=== PATIENT | male | born 1945 | race Caucasian/White ===

== ENCOUNTER 2016-05-08 15:51 | Inpatient (IN) ==
[2016-05-08 17:06] VITALS: BMI 39.2
[2016-05-08] MEDS ORDERED: PERCOCET 10-325 ONE (19:41)
[2016-05-08] MEDS: PERCOCET 10-325 PO PRN (19:44)
[2016-05-08 20:43] LABS: PROTHROMBIN TIME 27.9 SEC (9.3-11.0)
[2016-05-08] MEDS ORDERED: COUMADIN ONE ×2 (20:56)
[2016-05-08] MEDS ORDERED: XALATAN OP SCH (21:00)
[2016-05-08] MEDS ORDERED: CRESTOR PO SCH (21:00)
[2016-05-08] MEDS ORDERED: PREGABALIN PO SCH (21:00)
[2016-05-08] MEDS ORDERED: SOTALOL HCL 160 MG PO SCH (21:00)
[2016-05-08] MEDS ORDERED: [UNRECOGNIZED DRUG - OTHER] PO SCH (21:00)
[2016-05-08] MEDS: COUMADIN PO SCH ×2 (21:24→21:25)
[2016-05-08] MEDS ORDERED: BETAPACE ONE (21:28)
[2016-05-08] MEDS ORDERED: LYRICA ONE (21:28)
[2016-05-08] MEDS ORDERED: XALATAN OP ONE (21:29)
[2016-05-08] MEDS ORDERED: NON-FORMULARY MEDICATION (Pregabalin [Lyrica] 150 MG) PO SCH ×22 (21:39)
[2016-05-08] MEDS ORDERED: LYRICA PO STA (21:40)
[2016-05-09] MEDS ORDERED: PERCOCET 10-325 ONE (02:12)
[2016-05-09] MEDS: PERCOCET 10-325 PO PRN (02:13)
[2016-05-09] MEDS: PROTONIX PO SCH (06:10)
[2016-05-09] MEDS ORDERED: OXYCODONE PO PRN (07:28)
[2016-05-09 07:59] LABS: BASOPHILS # (AUTO) 0.1 K/uL (0-0.2); BASOPHILS % (AUTO) 0.6 % (0.0-3.0); EOSINOPHILS # (AUTO) 0.2 K/ul (0.0-0.7); EOSINOPHILS % (AUTO) 2.1 % (0.0-7.0); HEMATOCRIT 31.6 % (42.0-52.0); HEMOGLOBIN 10.2 g/dl (14.0-18.0); IMMATURE GRANULOCYTE % (AUTO) 1.9 % (0.0-5.0); LYMPHOCYTES # (AUTO) 2.9 K/uL (0.60-3.4); LYMPHOCYTES % (AUTO) 33.6 (10.0-50.0); MEAN CORPUSCULAR HEMOGLOBIN 30.3 pg (27.0-31.0); MEAN CORPUSCULAR HGB CONC 32.3 (31.8-35.4); MEAN CORPUSCULAR VOLUME 93.8 fl (80.0-94.0); MONOCYTES # (AUTO) 0.6 K/uL (0.4-2.0); MONOCYTES % (AUTO) 6.9 (0-10); NEUTROPHILS # (AUTO) 4.7 K/ul (2.0-6.9); NEUTROPHILS % (AUTO) 54.9; PLATELET COUNT 313 10^3/uL (140-440); RED BLOOD COUNT 3.37 10^6/ul (4.70-6.10); WHITE BLOOD COUNT 8.51 K/ul (4.2-10.2)
[2016-05-09 08:31] LABS: ALBUMIN 2.8 g/dL (3.4-5.0); ALBUMIN/GLOBULIN RATIO 0.93; BILIRUBIN,TOTAL 0.57 mg/dL (0.00-1.20); BUN/CREATININE RATIO 21.34; CALCIUM 9.7 mg/dL (8.2-10.2); CREATININE 0.89 mg/dL (0.60-1.10); TOTAL PROTEIN 5.8 g/dL (5.8-8.1)
[2016-05-09] MEDS: OMEGA-3 FISH OIL PO SCH (08:48)
[2016-05-09] MEDS: BETAPACE PO SCH ×2 (08:48→21:06)
[2016-05-09] MEDS: OXYCODONE PO PRN ×4 (08:54→21:52)
[2016-05-09] MEDS: MULTIVITAMIN PO SCH (08:54)
[2016-05-09] MEDS: CALCIUM 500 + VIT D 200 MG TABLET PO SCH (08:55)
[2016-05-09] MEDS: VITAMIN D PO SCH (08:56)
[2016-05-09] MEDS: TRILEPTAL PO SCH (08:56)
[2016-05-09] MEDS: MIRALAX PO SCH (08:57)
[2016-05-09] MEDS: [UNRECOGNIZED DRUG - OTHER] PO SCH ×2 (08:57→21:20)
[2016-05-09] MEDS ORDERED: TRIAMTERENE PO SCH (09:00)
[2016-05-09] MEDS ORDERED: NON-FORMULARY MEDICATION PO SCH ×22 (09:00)
[2016-05-09] MEDS ORDERED: DYAZIDE PO SCH (09:00)
[2016-05-09] MEDS ORDERED: [UNRECOGNIZED DRUG - OTHER] PO SCH (09:00)
[2016-05-09] MEDS ORDERED: DHA PO SCH ×22 (09:00)
[2016-05-09] MEDS ORDERED: NON-FORMULARY MEDICATION (Cholecalciferol (Vitamin D3) [Vitamin D3] 2,000 UNIT) PO SCH (09:00)
[2016-05-09] MEDS ORDERED: HYDROCHLOROTHIAZIDE PO SCH (09:00)
[2016-05-09] MEDS ORDERED: EPA PO SCH ×22 (09:00)
[2016-05-09] MEDS ORDERED: FISH OIL PO SCH ×22 (09:00)
--- NOTE | 2016-05-09 09:26 | DI ---
Exam: Chest two views History: Atrial fibrillation. Hypertension. Recent cardioversion. Findings: PA and lateral views of the chest were obtained and compared to the prior study from 10/04. There is a new area of minimal infiltrate and atelectasis posterior in location thought to localize to the lower lobe region, side of origin unclear from the frontal projection. Cardiac silhouette is believed to be borderline enlarged. No evidence of vascular congestion or red istribution nor pleural effusion is identified. Impression: As compared to 10/28/2015 there is a new area of minimal infiltrate/atelectasis thought to localize to one of the lower lobes, side of origin somewhat unclear from the frontal projection.
--- NOTE | 2016-05-09 11:49 | RS.PTINEVL ---
Subjective - Patient information Date of Evaluation: 05/09/16 Date of Arrival on Unit: 05/08/16 Admitted From:: Facility Transfer (following Right CONSTANTINE) Usual Living Arrangement: With Spouse Living Arrangement Comments: none Home Environment: House, Stairs (few) (1-2 to get into home), No rail Surgical History Comments:: Back surgery 1976, right shoulder surgery 2003, Cholecystecomy 1973 Subjective Information/ Patient Comments:: Patient states he is behind where he should be because of his heart issues while he was in [place]. States he wanted to come to [place] to get stronger and be able to get around by himself, while also having his heart monitored. States surgery was 10 days ago and he has not got to have much therapy because of his heart and recently having a fever. 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 No dressing is present over the icision. Range of Motion - ROM Right Upper Extremity AROM: WFL's Left Upper Extremity AROM: WFL's Right Lower Extremity AROM: Moderate limitation (due to recent right CONSTANTINE) Left Lower Extremity AROM: WFL's Muscle Strength - Muscle Strength Right Upper Extremity Strength: Normal Left Upper Extremity Strength: Normal Right Lower Extremity Strength: Mild Weakness Left Lower Extremity Strength: Normal Sensation - Sensation Comments: Reports some impaired sensation in right LE since surgery Balance - Sitting Balance and Reactions Static Sitting Balance: Good Dynamic Sitting Balance: Good - Standing Balance and Reactions Static Standing Balance: Fair (+) Dynamic Standing Balance: Fair Functional Mobility - Bed Mobility Supine to Sit: Mod Assist, 1 person assist, Verbal Cues, Tactile Cues Sit to Supine: Mod Assist, 1 person assist, Verbal Cues, Tactile Cues Comments:: Patient wanted me to move both legs off of the bed for supine to sit. Verbal and tactile instructions given for him to first move the left ( unaffected) leg off, then use that leverage to move the right LE. Assist given to move the right LE off the bed. Sit to supine, patient was given the choice of using the left LE under the right or gait belt around the right foot. Patient used the gait belt under the right foot and with mod assist of one, was able to help lift the right UE onto the bed. - Transfers Sit to Stand: CGA, Min Assist, 1 person assist, Verbal Cues, Tactile Cues Stand to Sit: CGA, Min Assist, 1 person assist, Verbal Cues, Tactile Cues Stand Pivot Transfers: Min Assist, 1 person assist, Verbal Cues, Tactile Cues - Safety Awareness Safety Awareness: Fair Ambulation - Ambulation Weight Bearing Status: FWB Assistive Device Used: Rolling Walker Distance: 100 feet Assistance needed with Ambulation: CGA, 1 person assist, Verbal Cues, Tactile Cues Gait Deviations: Forward posture, Short stride, Deviates from path (slightly) Factors Affecting Ambulation: Decreased Balance, Pain, Decreased ROM, Decreased Safety, Limited Endurance Treatment time - Units charged Exercise: 1 (SAQ's, AP's, LAQ's, heel slides) - Time with patient Total treatment time: 38 (mins) Patient Education - Education Patient Education: Education of diagnosis, Body/Joint mechanics, Home Exercise Program, Activity Modification, Education of Plan of Care Teaching Recipient: Patient Teaching Methods: Discussion Assessment - Assessment Problem List:: Decreased level of function, Requires training/education, Decreased safety/Risk of falls, Weakness, Pain limits previous level of function Rehab Potential: Good Further Therapy Indicated?: Yes Short Term Goals GOAL #1: Supine to sit with CGA for right LE. Goal to be met by: 05/13/16 GOAL #2: Sit to supine with CGA of right LE using gait belt. Goal to be met by: 05/13/16 GOAL #3: Sit to stand with Supvn with good safety with RW. Goal to be met by: 05/13/16 Fdc Goals GOAL #1: Independent with all bed mobility. Goal to be met by: 05/16/16 GOAL #2: All transfers independent with good safety. Goal to be met by: 05/16/16 GOAL #3: Amb. with RW household distances, independent, w/ good safety. Goal to be met by: 05/16/16 Plan Plan of Care: Therapeutic EX, Neuromuscular Re-Educ, Therapeutic Activity, Self- Care/Home Management Modalities: Cold Pack/Cryotherapy Frequency of Treatment: 1-2 X day, as tolerated Duration of Treatment: 1 Week Anticipated Discharge Destination: Home
[2016-05-09] MEDS ORDERED: WARFARIN SODIUM PO SCH ×42 (17:00)
[2016-05-09] MEDS: COUMADIN PO SCH ×2 (17:16)
[2016-05-09] MEDS: CRESTOR PO SCH (21:07)
[2016-05-09] MEDS: LYRICA PO SCH (21:08)
[2016-05-09] MEDS: XALATAN OP SCH (21:09)
[2016-05-10] MEDS: OXYCODONE PO PRN ×4 (04:21→20:01)
[2016-05-10 05:33] LABS: BASOPHILS # (AUTO) 0.1 K/uL (0-0.2); BASOPHILS % (AUTO) 0.7 % (0.0-3.0); EOSINOPHILS # (AUTO) 0.1 K/ul (0.0-0.7); EOSINOPHILS % (AUTO) 1.4 % (0.0-7.0); HEMATOCRIT 31.1 % (42.0-52.0); HEMOGLOBIN 9.9 g/dl (14.0-18.0); IMMATURE GRANULOCYTE % (AUTO) 2.2 % (0.0-5.0); LYMPHOCYTES # (AUTO) 3.1 K/uL (0.60-3.4); LYMPHOCYTES % (AUTO) 33.3 (10.0-50.0); MEAN CORPUSCULAR HEMOGLOBIN 29.8 pg (27.0-31.0); MEAN CORPUSCULAR HGB CONC 31.8 (31.8-35.4); MEAN CORPUSCULAR VOLUME 93.7 fl (80.0-94.0); MONOCYTES # (AUTO) 0.6 K/uL (0.4-2.0); NEUTROPHILS # (AUTO) 5.1 K/ul (2.0-6.9); NEUTROPHILS % (AUTO) 55.4; PLATELET COUNT 334 10^3/uL (140-440); RED BLOOD COUNT 3.32 10^6/ul (4.70-6.10); WHITE BLOOD COUNT 9.16 K/ul (4.2-10.2)
[2016-05-10] MEDS: PROTONIX PO SCH (05:34)
[2016-05-10 05:46] LABS: PROTHROMBIN TIME 31.3 SEC (9.3-11.0)
[2016-05-10 06:02] LABS: ALBUMIN 2.8 g/dL (3.4-5.0); ALBUMIN/GLOBULIN RATIO 1.04; ANION GAP 13.1; BILIRUBIN,TOTAL 0.56 mg/dL (0.00-1.20); BUN/CREATININE RATIO 22.09; CALCIUM 9.6 mg/dL (8.2-10.2); CREATININE 0.86 mg/dL (0.60-1.10); POTASSIUM 4.1 mmol/L (3.5-5.1); TOTAL PROTEIN 5.5 g/dL (5.8-8.1)
[2016-05-10] MEDS: OMEGA-3 FISH OIL PO SCH (09:26)
[2016-05-10] MEDS: DULCOLAX RC PRN (09:26)
[2016-05-10] MEDS: VITAMIN D PO SCH (09:26)
[2016-05-10] MEDS: BETAPACE PO SCH ×2 (09:26→20:00)
[2016-05-10] MEDS: MULTIVITAMIN PO SCH (09:26)
[2016-05-10] MEDS: CALCIUM 500 + VIT D 200 MG TABLET PO SCH (09:26)
[2016-05-10] MEDS: TRILEPTAL PO SCH (09:26)
[2016-05-10] MEDS: COLACE PO SCH (09:27)
[2016-05-10] MEDS: MIRALAX PO SCH (09:27)
[2016-05-10] MEDS: [UNRECOGNIZED DRUG - OTHER] PO SCH ×2 (09:36→20:01)
[2016-05-10] MEDS ORDERED: LASIX IVP STA (13:31)
[2016-05-10] MEDS: CRESTOR PO SCH (20:00)
[2016-05-10] MEDS: LYRICA PO SCH (20:00)
[2016-05-10] MEDS: XANAX PO PRN (20:00)
[2016-05-10] MEDS: XALATAN OP SCH (20:03)
[2016-05-11 04:44] LABS: BASOPHILS % (AUTO) 0.5 % (0.0-3.0); EOSINOPHILS # (AUTO) 0.1 K/ul (0.0-0.7); EOSINOPHILS % (AUTO) 1.5 % (0.0-7.0); HEMATOCRIT 29.1 % (42.0-52.0); HEMOGLOBIN 9.4 g/dl (14.0-18.0); IMMATURE GRANULOCYTE % (AUTO) 2.2 % (0.0-5.0); LYMPHOCYTES # (AUTO) 2.9 K/uL (0.60-3.4); LYMPHOCYTES % (AUTO) 35.1 (10.0-50.0); MEAN CORPUSCULAR HEMOGLOBIN 30.1 pg (27.0-31.0); MEAN CORPUSCULAR HGB CONC 32.3 (31.8-35.4); MEAN CORPUSCULAR VOLUME 93.3 fl (80.0-94.0); MONOCYTES # (AUTO) 0.6 K/uL (0.4-2.0); MONOCYTES % (AUTO) 7.7 (0-10); NEUTROPHILS # (AUTO) 4.4 K/ul (2.0-6.9); PLATELET COUNT 299 10^3/uL (140-440); RED BLOOD COUNT 3.12 10^6/ul (4.70-6.10); WHITE BLOOD COUNT 8.21 K/ul (4.2-10.2)
[2016-05-11 04:54] LABS: PROTHROMBIN TIME 27.9 SEC (9.3-11.0)
[2016-05-11 05:06] LABS: ALBUMIN 2.6 g/dL (3.4-5.0); ANION GAP 9.1; BILIRUBIN,TOTAL 0.49 mg/dL (0.00-1.20); BUN/CREATININE RATIO 17.97; CALCIUM 9.3 mg/dL (8.2-10.2); CREATININE 0.89 mg/dL (0.60-1.10); POTASSIUM 4.1 mmol/L (3.5-5.1); TOTAL PROTEIN 5.2 g/dL (5.8-8.1)
[2016-05-11] MEDS: OXYCODONE PO PRN ×4 (05:14→22:09)
[2016-05-11] MEDS: PROTONIX PO SCH (05:40)
[2016-05-11] MEDS: BETAPACE PO SCH ×2 (09:03→20:28)
[2016-05-11] MEDS: COLACE PO SCH (09:04)
[2016-05-11] MEDS: CALCIUM 500 + VIT D 200 MG TABLET PO SCH (09:04)
[2016-05-11] MEDS: MIRALAX PO SCH (09:05)
[2016-05-11] MEDS: MULTIVITAMIN PO SCH (09:05)
[2016-05-11] MEDS: TRILEPTAL PO SCH (09:06)
[2016-05-11] MEDS: VITAMIN D PO SCH (09:06)
[2016-05-11] MEDS: OMEGA-3 FISH OIL PO SCH (09:06)
[2016-05-11] MEDS: [UNRECOGNIZED DRUG - OTHER] PO SCH ×2 (09:08→20:29)
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
--- NOTE | 2016-05-11 13:19 | PN ---
DATE OF SERVICE: 05/09/16 SUBJECTIVE: The patient is a 71 year old white male hospitalized after right total hip replacement. The patient is feeling a lot better and he is looking better. The is in the room. The patient's leg swelling on the right lower extremity is a lot better now the leg swelling is maybe +1 to +2 non pitting. It is less sore. REVIEW OF SYSTEMS: CONSTITUTIONAL: No night sweats. No fatigue, malaise, lethargy. No fever or chills. HEENT: Eyes: No visual changes. No eye pain. No eye discharge. ENT: No runny nose. No epistaxis. No sinus pain. No sore throat. No odynophagia. No congestion. RESPIRATORY: No cough, no congestion. No hemoptysis. CARDIOVASCULAR: No angina symptoms. No CHF symptoms. No atypical chest pain for CAD. No palpitations. No shortness of breath. GASTROINTESTINAL: No abdominal pain. No nausea or vomiting. No diarrhea or constipation. No hematemesis. No hematochezia. GENITOURINARY: No urgency. No frequency. No dysuria. No hematuria. No obstructive symptoms. No discharge. No pain. No significant abnormal bleeding. MUSCULOSKELETAL: No musculoskeletal pain; no joint swelling. NEUROLOGICAL: No headache. No neck pain. No syncope. No seizures. No dizziness. PSYCHIATRIC: Not anxious. No depression. No suicidal thoughts. No homicidal thoughts. SKIN: No rash. No lesions. No wounds. ENDOCRINE: No unexplained weight loss. No weight gain. HEMATOLOGIC/LYMPHATIC: No anemia. No purpura. No petechiae. No prolonged or excessive bleeding. No palpable lymph nodes. PHYSICAL EXAMINATION: GENERAL: The patient is oriented to time, place and person. VITAL SIGNS: Temperature 97.3, pulse 58, respiratory 15, blood pressure 56/55 and pulse ox 96%. HEENT: Head normocephalic, atraumatic. Eyes: Extraocular muscles are intact. Pupils are equal, round and reactive to light and accommodation. Ears: No lesions. Nose appeared normal. Throat: No exudate or erythema. NECK: Supple. No JVD, no carotid bruit. No lymphadenopathy or thyromegaly. LUNGS: Decreased breath sounds but clear to auscultation. Percussion note normal. Chest symmetrical. HEART: S1, S2, no S3. No murmurs. No cyanosis or clubbing. No ascites. Pulses: Dorsalis pedis and posterior tibial pulses +1 to +2 both sides. The patient's EKG shows sinus rhythm, bradycardia, PAC's and telemetry the same way. ABDOMEN: Soft. Nontender. Bowel sounds active. No CVA tenderness. No mass felt. EXTREMITIES: No edema. Full range of motion of all extremities, equal. NEUROLOGIC: No focal deficit. Cranial nerves II through XII are grossly intact. No headache, no double vision or headache. SKIN: Not dry. Intact. Turgor - normal. LYMPHATIC: No palpable lymph nodes/no lymphedema. MUSCULOSKELETAL: Normal joints with no swelling. Muscle tone is normal. ASSESSMENT: 1. Right total hip replacement, stable with no evidence of infection at operating site. 2. Calf muscle on the right side is a lot better maybe some swelling, dorsum of the right foot has also some swelling but no tenderness and no redness. On admission day I had mentioned that the patient is still in atrial fibrillation but patient's wasn't that was an error. The patient is in sinus rhythm. After the third Cardioversion the patient had the patient has PAC's. The patient is on 160mg Sotalol twice a day. Blood pressure is on the low side. Dyazide has been taken off CONDITION: Stable. TIME SPENT: More than 30 minutes. Plan and coordination of the patient's care discussed in the presence of nurse. JUNITO
--- NOTE | 2016-05-11 14:49 | PN ---
DATE OF SERVICE: 05/10/16 SUBJECTIVE: The patient is a 71 year old white male hospitalized with right hip replacement. The patient's condition has improved. He is looking a lot better. His pulse rate is 60 regular with occasional PAC's. His blood pressure has come up to 118/70's. Leg edema is somewhat worse then before but the patient is sitting in the bed with his leg elevated and we are going to give Lasix 20mg IV. REVIEW OF SYSTEMS: CONSTITUTIONAL: No night sweats. No fatigue, malaise, lethargy. No fever or chills. HEENT: Eyes: No visual changes. No eye pain. No eye discharge. ENT: No runny nose. No epistaxis. No sinus pain. No sore throat. No odynophagia. No congestion. RESPIRATORY: No cough, no congestion. No hemoptysis. CARDIOVASCULAR: No angina symptoms. No CHF symptoms. No atypical chest pain for CAD. No palpitations. No shortness of breath. GASTROINTESTINAL: No abdominal pain. No nausea or vomiting. No diarrhea or constipation. No hematemesis. No hematochezia. GENITOURINARY: No urgency. No frequency. No dysuria. No hematuria. No obstructive symptoms. No discharge. No pain. No significant abnormal bleeding. MUSCULOSKELETAL: No musculoskeletal pain; no joint swelling. NEUROLOGICAL: No headache. No neck pain. No syncope. No seizures. No dizziness. PSYCHIATRIC: Not anxious. No depression. No suicidal thoughts. No homicidal thoughts. SKIN: No rash. No lesions. No wounds. ENDOCRINE: No unexplained weight loss. No weight gain. HEMATOLOGIC/LYMPHATIC: No anemia. No purpura. No petechiae. No prolonged or excessive bleeding. No palpable lymph nodes. PHYSICAL EXAMINATION: GENERAL: The patient is oriented to time, place and person. VITAL SIGNS: Temperature 97.4, pulse 55, blood pressure 98/56, respiratory 18 and pulse ox 94%. HEENT: Head normocephalic, atraumatic. Eyes: Extraocular muscles are intact. Pupils are equal, round and reactive to light and accommodation. Ears: No lesions. Nose appeared normal. Throat: No exudate or erythema. NECK: Supple. No JVD, no carotid bruit. No lymphadenopathy or thyromegaly. LUNGS: Clear to auscultation. Percussion note normal. Chest symmetrical. HEART: S1, S2, no S3. No murmurs. No cyanosis or clubbing. No ascites. Pulses: Dorsalis pedis and posterior tibial pulses +1 to +2 both sides. ABDOMEN: Soft. Nontender. Bowel sounds active. No CVA tenderness. No mass felt. EXTREMITIES: No edema. Full range of motion of all extremities, equal. NEUROLOGIC: No focal deficit. Cranial nerves II through XII are grossly intact. No headache, no double vision or headache. SKIN: Not dry. Intact. Turgor - normal. LYMPHATIC: No palpable lymph nodes/no lymphedema. MUSCULOSKELETAL: Normal joints with no swelling. Muscle tone is normal. LABS: Hgb 9.9, hct 31, WBC 9,100 normal differential, creatinine 1.8,BUN 19, potassium 4.1, INR 3.0 we are going to hold Coumadin until further order. No evidence of active bleed. ASSESSMENT: 1. Right hip replacement with right lower extremity edema 2. Atrial fibrillation, has resolved after the third Cardioversion. He is on 160 twice a day 3. Anemia, seems to be stable. The patient's hgb was more than 14 with hct of 42 of more before surgery and now it is 9.9 and 31. PLAN: 1. Will give Lasix 2. Elevate the extremity 3. Betapace will reduce the dose tomorrow 4. Will monitor the hgb and hct. CONDITION: Stable. TIME SPENT: More than 30 minutes. Plan and coordination of the patient's care discussed in the presence of nurse. JUNITO
[2016-05-11] MEDS: CRESTOR PO SCH (20:27)
[2016-05-11] MEDS: LYRICA PO SCH (20:28)
[2016-05-11] MEDS: XALATAN OP SCH (20:28)
[2016-05-12 04:43] LABS: BASOPHILS # (AUTO) 0.1 K/uL (0-0.2); BASOPHILS % (AUTO) 0.6 % (0.0-3.0); EOSINOPHILS # (AUTO) 0.1 K/ul (0.0-0.7); EOSINOPHILS % (AUTO) 1.5 % (0.0-7.0); HEMATOCRIT 30.2 % (42.0-52.0); HEMOGLOBIN 9.8 g/dl (14.0-18.0); IMMATURE GRANULOCYTE % (AUTO) 1.8 % (0.0-5.0); LYMPHOCYTES # (AUTO) 2.9 K/uL (0.60-3.4); LYMPHOCYTES % (AUTO) 33.8 (10.0-50.0); MEAN CORPUSCULAR HEMOGLOBIN 30.1 pg (27.0-31.0); MEAN CORPUSCULAR HGB CONC 32.5 (31.8-35.4); MEAN CORPUSCULAR VOLUME 92.6 fl (80.0-94.0); MONOCYTES # (AUTO) 0.6 K/uL (0.4-2.0); NEUTROPHILS # (AUTO) 4.7 K/ul (2.0-6.9); NEUTROPHILS % (AUTO) 55.3; PLATELET COUNT 338 10^3/uL (140-440); RED BLOOD COUNT 3.26 10^6/ul (4.70-6.10); WHITE BLOOD COUNT 8.56 K/ul (4.2-10.2)
[2016-05-12] MEDS: OXYCODONE PO PRN ×3 (04:45→13:54)
[2016-05-12 04:53] LABS: PROTHROMBIN TIME 17.1 SEC (9.3-11.0)
[2016-05-12 05:14] LABS: ALBUMIN 2.7 g/dL (3.4-5.0); ALBUMIN/GLOBULIN RATIO 0.96; BILIRUBIN,TOTAL 0.54 mg/dL (0.00-1.20); BUN/CREATININE RATIO 14.73; CALCIUM 9.5 mg/dL (8.2-10.2); CREATININE 0.95 mg/dL (0.60-1.10); TOTAL PROTEIN 5.5 g/dL (5.8-8.1)
[2016-05-12] MEDS: PROTONIX PO SCH (05:34)
[2016-05-12] MEDS: MIRALAX PO SCH (08:43)
[2016-05-12] MEDS: MULTIVITAMIN PO SCH (08:44)
[2016-05-12] MEDS: OMEGA-3 FISH OIL PO SCH (08:44)
[2016-05-12] MEDS: TRILEPTAL PO SCH (08:44)
[2016-05-12] MEDS: CALCIUM 500 + VIT D 200 MG TABLET PO SCH (08:45)
[2016-05-12] MEDS: BETAPACE PO SCH ×2 (08:45→21:51)
[2016-05-12] MEDS: VITAMIN D PO SCH (08:45)
[2016-05-12] MEDS: COLACE PO SCH ×3 (08:45→21:51)
[2016-05-12] MEDS: [UNRECOGNIZED DRUG - OTHER] PO SCH ×2 (08:49→21:54)
[2016-05-12] MEDS: DULCOLAX RC PRN (08:55)
--- NOTE | 2016-05-12 11:32 | PCM.PROG ---
Attending Provider: ATTENDING PROVIDER: Dr. RICHARD MENDOZA DATE OF SERVICE: 05/12/16 SUBJECTIVE: This 71 year old WHITE/ M was hospitalized 05/08/16. The patient is hospitalized with right total hip replacement. The patient's condition has improved. Edema is much less. The patient is up and and about, walking and is making progress. Telemetry shows sinus rhythm and PACs. The patient is asking for Miralax. REVIEW OF SYSTEMS: CONSTITUTIONAL: No night sweats. No fatigue, malaise, lethargy. No fever or chills. HEENT: Eyes: No visual changes. No eye pain. No eye discharge. ENT: No runny nose. No epistaxis. No sinus pain. No odynophagia. No congestion. RESPIRATORY: No cough, no congestion. No hemoptysis. CARDIOVASCULAR: No angina symptoms. No CHF symptoms. No atypical chest pain for CAD. No palpitations. No shortness of breath. GASTROINTESTINAL: Appetite is better. No abdominal pain. No nausea or vomiting. Constipation. No hematemesis. No hematochezia. GENITOURINARY: No urgency. No frequency. No dysuria. No hematuria. No obstructive symptoms. No discharge. No pain. No significant abnormal bleeding. MUSCULOSKELETAL: No complaint of pain. NEUROLOGICAL: Awake, alert, oriented to time, place and person. No headache. No neck pain. No syncope. No seizures. No dizziness. PSYCHIATRIC: Not anxious. No depression. No suicidal thoughts. No homicidal thoughts. SKIN: No rash. Incision right hip clean, no sign of infection. ENDOCRINE: No unexplained weight loss. No weight gain. HEMATOLOGIC/LYMPHATIC: No anemia. No purpura. No petechiae. No prolonged or excessive bleeding. No palpable lymph nodes. PHYSICAL EXAMINATION: GENERAL: The patient is awake, alert and oriented, sitting on the side of the bed in no distress. VITAL SIGNS: Temperature 98.3 F, Pulse 72, Respiratory Rate 20, BP 107/62, Pulse Ox 92% HEENT: Head normocephalic, atraumatic. Eyes: Extraocular muscles are intact. Pupils are equal, round and reactive to light and accommodation. Ears: No lesions. Nose appeared normal. Throat: No exudate or erythema. NECK: Supple. No JVD, no carotid bruit. No lymphadenopathy or thyromegaly. LUNGS: Clear to auscultation. Percussion note normal. Chest symmetrical. HEART: S1, S2, no S3. No murmurs. No cyanosis or clubbing. No ascites. Pulses: Dorsalis pedis and posterior tibial pulses +1 to +2 both sides. ABDOMEN: Soft. Non-tender. Bowel sounds active. No CVA tenderness. No mass felt. EXTREMITIES: No edema. Full range of motion of all extremities, equal. Incision of right hip is clean and healthy looking. No evidence of infection. NEUROLOGIC: No focal deficit. Cranial nerves II through XII are grossly intact. No headache, no double vision or headache. SKIN: Not dry. Intact. Turgor-normal. LYMPHATIC: No palpable lymph nodes/no lymphedema. MUSCULOSKELETAL: Normal joints with no swelling. Muscle tone is normal. LAB REVIEW: 05/12/16 04:39 05/12/16 04:39 05/12/16 04:39: WBC 8.56, RBC 3.26 L, Hgb 9.8 L, Hct 30.2 L, MCV 92.6, MCH 30.1 , MCHC 32.5, RDW Coeff of Sergio 15.0 H, Plt Count 338, Immature Gran % (Auto) 1.8 , Neut % (Auto) 55.3, Lymph % (Auto) 33.8, [place] % (Auto) 7.0, Eos % (Auto) 1.5, Baso % (Auto) 0.6, Immature Gran # (Auto) 0.2, Neut # 4.7, Lymph # 2.9, [place] # 0.6, Eos # 0.1, Baso # 0.1, PT 17.1 H D, INR 1.66, Sodium 142, Potassium 4.0, Chloride 104, Carbon Dioxide 31, Anion Gap 11.0, BUN 14, Creatinine 0.95, Estimated GFR (MDRD) 78.00, BUN/Creatinine Ratio 14.73, Glucose 125 H, Calcium 9.5, Total Bilirubin 0.54, AST 25, ALT 52, Alkaline Phosphatase 67, Total Protein 5.5 L, Albumin 2.7 L, Globulin 2.8, Albumin/Globulin Ratio 0.96 ASSESSMENT: 1. Right hip replacement recovering well with no obvious complications. 2. Hypertension 3. Pulmonary embolism status post [place] filter. 4. Dyslipidemia. 5. Osteoarthritis. 6. DJD spine. 7. CHF PLAN: 1. Miralax 2. Restart Coumadin 7 mg today 3. Betapace reduce to 120 mg twice a day 4. The patient was given a dose of Lasix. 5. Will restart Dyazide daily. 6. Hemoglobin and hematocrit are stable at a lower level. No evidence of GI bleeding. Plan and coordination of the patient's care discussed in the presence of Stewarding Supervisor and nurse. CONDITION: Stable SCRIBED BY: HAIDER SHAW Development Manager scribed while in presence of service performed by Dr. RICHARD MENDOZA on 05/12/16 ([id number])
[2016-05-12] MEDS: DYAZIDE PO SCH (13:51)
--- NOTE | 2016-05-12 14:12 | HP ---
DATE OF SERVICE: 05/08/16 - SWING BED ADMISSION (the patient was seen by me in Room 112) REASON FOR HOSPITALIZATION/HISTORY OF PRESENT ILLNESS: This patient is a 71-year-old male who was admitted to swing bed after undergoing right total hip replacement. The patient, during the stay in the hospital, had fever with hypotension. The patient had atrial fibrillation, which was known postop. After 2 to 3 days of staying in the hospital, cardioversion was tried times three, which has been unsuccessful. The patient is on Sotalol, Oxycodone, antihypertensive, Valium. REVIEW OF SYSTEMS: CONSTITUTIONAL: No night sweats. No fatigue, malaise, lethargy. No fever or chills. HEENT: Eyes: No visual changes. No eye pain. No eye discharge. ENT: No runny nose. No epistaxis. No sinus pain. No sore throat. No odynophagia. No ear pain. No congestion. RESPIRATORY: No cough, no congestion. No hemoptysis. CARDIOVASCULAR: No angina symptoms. No CHF symptoms. No atypical chest pain for CAD. No palpitations. No shortness of breath. GASTROINTESTINAL: No abdominal pain. No nausea or vomiting. No diarrhea or constipation. No hematemesis. No hematochezia. GENITOURINARY: No urgency. No frequency. No dysuria. No hematuria. No obstructive symptoms. No discharge. No pain. No significant abnormal bleeding. MUSCULOSKELETAL: Soreness in the right hip area. NEUROLOGICAL: No headache. No neck pain. No syncope. No seizures. No dizziness. PSYCHIATRIC: Not anxious. No depression. No suicidal thoughts. No homicidal thoughts. SKIN: No rash. No lesions. No wounds. ENDOCRINE: No unexplained weight loss. No weight gain. HEMATOLOGIC/LYMPHATIC: No anemia. No purpura. No petechiae. No prolonged or excessive bleeding. No palpable lymph nodes. PAST MEDICAL/SURGICAL HISTORY: 1. Colonic ileus 06/21/13 2. Hypertension 3. Pulmonary embolism by history status post Octavio filter 4. Dyslipidemia 5. Osteoarthritis 6. DJD spine 7. CHF 9. Cholecystectomy 10. Lumbar surgery PERSONAL/FAMILY/SOCIAL HISTORY: The patient is , lives with his . Nonsmoker. No alcohol use. He does all activities of daily living. MEDICATIONS: (HOME) 1. Multivitamin one p.o. daily 2. Glucose/Chondr/Олег Hy/Hy/AC one each p.o. b.i.d. 3. Cholecalciferol (Vitamin D3) (Vitamin D) 2000 unit p.o. daily 4. Fish Oil/Dha/Epa one each p.o. daily 5. Triamterene/Hydrochlorothiazide 75 mg-50 mg one cap p.o. daily 6. Esomeprazole Magnesium (Nexium) 40 mg p.o. daily 7. Latanoprost (Xalatan) one drop route bedtime 8. Calcium Carbonate/Vitamin D3 one each p.o. daily 9. Alprazolam (Xanax) 0.25 mg p.o. p.r.n. 10. Sotalol 160 mg p.o. b.i.d. 11. Rosuvastatin (Crestor) one tab p.o. bedtime 12. Pregabalin (Lyrica) 150 mg p.o. bedtime 13. Warfarin (Coumadin) 4 mg one tab p.o. q.p.m. 14. Warfarin (Coumadin) 3 mg one tab p.o. q.p.m. ALLERGIES: AMPICILLIN, MORPHINE PHYSICAL EXAMINATION: GENERAL: The patient is oriented to time, place and person. VITAL SIGNS: Temperature 98, pulse 90/min irregular, respiratory rate 15, BP 138/82. HEENT: Head normocephalic, atraumatic. Eyes: Extraocular muscles are intact. Pupils are equal, round and reactive to light and accommodation. Ears: No lesions. Nose appeared normal. Throat: No exudate or erythema. NECK: Supple. No JVP, no carotid bruit. No lymphadenopathy or thyromegaly. LUNGS: Clear to auscultation. Percussion note normal. Chest symmetrical. HEART: S1, S2, no S3. irregularly irregular, rate 98/min. No cyanosis or clubbing. No ascites. Pulses: Dorsalis pedis and posterior tibial pulses +1 to +2 both sides. ABDOMEN: Soft. Nontender. Bowel sounds active. No CVA tenderness. No mass felt. EXTREMITIES: Full range of motion of all extremities, equal. Right hip is swollen, incision dry. No drainage noted. No evidence of infection. Right calf swollen, non pitting edema likely from extravasation of blood. Edema is +3 on right leg. NEUROLOGIC: No focal deficit. Cranial nerves II through XII are grossly intact. No headache, no double vision or headache. SKIN: Not dry. Intact. Turgor - normal. LYMPHATIC: No palpable lymph nodes/no lymphedema. MUSCULOSKELETAL: Normal joints with no swelling. Muscle tone is normal. ASSESSMENT: 1. RIGHT TOTAL HIP REPLACEMENT 2. ATRIAL FIBRILLATION, FAILED CARDIOVERSION 3. HYPERTENSION 4. OBESITY 5. GENERALIZED OSTEOARTHRITIS PLAN: 1. Elevate legs. 2. Oxycodone is not available so will put patient on Percocet. 3. Continue all other orders given by discharge physician from [facility] including antiplatelet therapy, telemetry. EKG already done shows atrial fibrillation. 4. CBC, CMP pending. CONDITION: Stable. TIME SPENT: More than 70 minutes. MTDD
[2016-05-12] MEDS: COUMADIN 2 MG, COUMADIN 5 MG PO SCH ×2 (17:42)
[2016-05-12] MEDS ORDERED: TYLENOL PO STA (19:37)
[2016-05-12] MEDS ORDERED: TYLENOL PO PRN (19:38)
[2016-05-12] MEDS: DEXTROSE 5%-1/2NS IV SOLUTION 1,000 ML IV SCH (19:49)
[2016-05-12 21:23] LABS: BILIRUBIN,URINE Negative (NEGATIVE); KETONES,URINE Negative (NEGATIVE); LEUKOCYTE ESTERASE ,URINE Negative (NEGATIVE); NITRITE,URINE Negative (NEGATIVE); PH,URINE 8.5 (5-9); PROTEIN,URINE Negative (NEGATIVE); URINE, BLOOD Negative (NEGATIVE)
[2016-05-12 21:24] LABS: ADD URINE MICROSCOPIC NO
[2016-05-12] MEDS: LYRICA PO SCH (21:51)
[2016-05-12] MEDS: CRESTOR PO SCH (21:51)
[2016-05-12] MEDS: XALATAN OP SCH (21:51)
[2016-05-13] MEDS: DEXTROSE 5%-1/2NS IV SOLUTION 1,000 ML IV SCH (03:55)
[2016-05-13 05:25] LABS: BASOPHILS % (AUTO) 0.3 % (0.0-3.0); EOSINOPHILS % (AUTO) 0.2 % (0.0-7.0); HEMATOCRIT 31.2 % (42.0-52.0); HEMOGLOBIN 10.1 g/dl (14.0-18.0); IMMATURE GRANULOCYTE % (AUTO) 0.9 % (0.0-5.0); LYMPHOCYTES # (AUTO) 2.4 K/uL (0.60-3.4); LYMPHOCYTES % (AUTO) 18.8 (10.0-50.0); MEAN CORPUSCULAR HEMOGLOBIN 29.9 pg (27.0-31.0); MEAN CORPUSCULAR HGB CONC 32.4 (31.8-35.4); MEAN CORPUSCULAR VOLUME 92.3 fl (80.0-94.0); MONOCYTES # (AUTO) 0.8 K/uL (0.4-2.0); MONOCYTES % (AUTO) 6.5 (0-10); NEUTROPHILS # (AUTO) 9.4 K/ul (2.0-6.9); NEUTROPHILS % (AUTO) 73.3; PLATELET COUNT 374 10^3/uL (140-440); RED BLOOD COUNT 3.38 10^6/ul (4.70-6.10); WHITE BLOOD COUNT 12.82 K/ul (4.2-10.2)
[2016-05-13] MEDS: PROTONIX PO SCH (05:56)
[2016-05-13 05:57] LABS: ALBUMIN 2.8 g/dL (3.4-5.0); ALBUMIN/GLOBULIN RATIO 0.97; ANION GAP 10.7; BILIRUBIN,TOTAL 1.02 mg/dL (0.00-1.20); BUN/CREATININE RATIO 13.25; CALCIUM 9.5 mg/dL (8.2-10.2); CREATININE 0.83 mg/dL (0.60-1.10); POTASSIUM 3.7 mmol/L (3.5-5.1); TOTAL PROTEIN 5.7 g/dL (5.8-8.1)
[2016-05-13] MEDS: CALCIUM 500 + VIT D 200 MG TABLET PO SCH (08:02)
[2016-05-13] MEDS: VITAMIN D PO SCH (08:02)
[2016-05-13] MEDS: TRILEPTAL PO SCH (08:02)
[2016-05-13] MEDS: OMEGA-3 FISH OIL PO SCH (08:02)
[2016-05-13] MEDS: BETAPACE PO SCH ×2 (08:02→22:38)
[2016-05-13] MEDS: MULTIVITAMIN PO SCH (08:02)
[2016-05-13] MEDS: MIRALAX PO SCH (08:03)
[2016-05-13] MEDS: DYAZIDE PO SCH (08:03)
[2016-05-13] MEDS: COLACE PO SCH ×3 (08:04→22:38)
[2016-05-13] MEDS: [UNRECOGNIZED DRUG - OTHER] PO SCH ×2 (08:04→22:44)
[2016-05-13] MEDS ORDERED: LOVENOX SUBCUT ONE (09:00)
[2016-05-13] MEDS: COUMADIN 2 MG, COUMADIN 5 MG PO SCH ×2 (16:11)
[2016-05-13] MEDS: LYRICA PO SCH (22:34)
[2016-05-13] MEDS: XANAX PO PRN (22:36)
[2016-05-13] MEDS: OXYCODONE PO PRN (22:40)
[2016-05-13] MEDS: CRESTOR PO SCH (22:41)
[2016-05-13] MEDS: XALATAN OP SCH (22:42)
[2016-05-14] MEDS: PROTONIX PO SCH (05:54)
[2016-05-14 06:15] LABS: BASOPHILS # (AUTO) 0.1 K/uL (0-0.2); BASOPHILS % (AUTO) 0.5 % (0.0-3.0); EOSINOPHILS # (AUTO) 0.1 K/ul (0.0-0.7); EOSINOPHILS % (AUTO) 0.5 % (0.0-7.0); HEMATOCRIT 33.5 % (42.0-52.0); HEMOGLOBIN 10.9 g/dl (14.0-18.0); IMMATURE GRANULOCYTE % (AUTO) 1.1 % (0.0-5.0); LYMPHOCYTES # (AUTO) 2.8 K/uL (0.60-3.4); LYMPHOCYTES % (AUTO) 29.3 (10.0-50.0); MEAN CORPUSCULAR HEMOGLOBIN 30.5 pg (27.0-31.0); MEAN CORPUSCULAR HGB CONC 32.5 (31.8-35.4); MEAN CORPUSCULAR VOLUME 93.8 fl (80.0-94.0); MONOCYTES # (AUTO) 0.6 K/uL (0.4-2.0); MONOCYTES % (AUTO) 6.4 (0-10); NEUTROPHILS # (AUTO) 5.9 K/ul (2.0-6.9); NEUTROPHILS % (AUTO) 62.2; PLATELET COUNT 400 10^3/uL (140-440); RED BLOOD COUNT 3.57 10^6/ul (4.70-6.10); WHITE BLOOD COUNT 9.51 K/ul (4.2-10.2)
[2016-05-14 06:25] LABS: PROTHROMBIN TIME 15.2 SEC (9.3-11.0)
[2016-05-14 06:35] LABS: ALBUMIN/GLOBULIN RATIO 0.91; ANION GAP 11.5; BILIRUBIN,TOTAL 0.85 mg/dL (0.00-1.20); BUN/CREATININE RATIO 12.65; CALCIUM 10.1 mg/dL (8.2-10.2); CREATININE 0.79 mg/dL (0.60-1.10); POTASSIUM 3.5 mmol/L (3.5-5.1); TOTAL PROTEIN 6.3 g/dL (5.8-8.1)
[2016-05-14] MEDS: BETAPACE PO SCH ×2 (08:26→20:01)
[2016-05-14] MEDS: COLACE PO SCH ×3 (08:26→20:02)
[2016-05-14] MEDS: CALCIUM 500 + VIT D 200 MG TABLET PO SCH (08:26)
[2016-05-14] MEDS: OMEGA-3 FISH OIL PO SCH (08:27)
[2016-05-14] MEDS: MULTIVITAMIN PO SCH (08:27)
[2016-05-14] MEDS: DYAZIDE PO SCH (08:27)
[2016-05-14] MEDS: MIRALAX PO SCH (08:27)
[2016-05-14] MEDS: VITAMIN D PO SCH (08:28)
[2016-05-14] MEDS: [UNRECOGNIZED DRUG - OTHER] PO SCH ×2 (08:28→20:57)
[2016-05-14] MEDS: TRILEPTAL PO SCH (08:28)
[2016-05-14] MEDS: OXYCODONE PO PRN ×2 (10:35→20:01)
--- NOTE | 2016-05-14 11:29 | PCM.PROG ---
Attending Provider: ATTENDING PROVIDER: Dr. RICHARD MENDOZA DATE OF SERVICE: 05/14/16 SUBJECTIVE: This 71 year old WHITE/ M was hospitalized 05/08/16. The patient is hospitalized with right hip replacement. The patient is in sinus rhythm. The patient's condition has steadily improved; he is walking good, eating well, hemoglobin and hematocrit are going up. REVIEW OF SYSTEMS: CONSTITUTIONAL: No night sweats. No fatigue, malaise, lethargy. No fever or chills. HEENT: Eyes: No visual changes. No eye pain. No eye discharge. ENT: No runny nose. No epistaxis. No sinus pain. No odynophagia. No congestion. RESPIRATORY: No cough, no congestion. No hemoptysis. CARDIOVASCULAR: No angina symptoms. No CHF symptoms. No atypical chest pain for CAD. No palpitations. No shortness of breath. GASTROINTESTINAL: No abdominal pain. No nausea or vomiting. No diarrhea or constipation. No hematemesis. No hematochezia. GENITOURINARY: No urgency. No frequency. No dysuria. No hematuria. No obstructive symptoms. No discharge. No pain. No significant abnormal bleeding. MUSCULOSKELETAL: Soreness of the hip. NEUROLOGICAL: Awake, alert, oriented to time, place and person. No headache. No neck pain. No syncope. No seizures. No dizziness. PSYCHIATRIC: Not anxious. No depression. No suicidal thoughts. No homicidal thoughts. SKIN: No rash. Right hip incision is healing well. ENDOCRINE: No unexplained weight loss. No weight gain. HEMATOLOGIC/LYMPHATIC: No anemia. No purpura. No petechiae. No prolonged or excessive bleeding. No palpable lymph nodes. PHYSICAL EXAMINATION: GENERAL: The patient is awake, alert and oriented, sitting in chair, in no distress. VITAL SIGNS: Temperature 98.0 F, Pulse 62, Respiratory Rate 20, BP 111/62, Pulse Ox 98% HEENT: Head normocephalic, atraumatic. Eyes: Extraocular muscles are intact. Pupils are equal, round and reactive to light and accommodation. Ears: No lesions. Nose appeared normal. Throat: No exudate or erythema. NECK: Supple. No JVD, no carotid bruit. No lymphadenopathy or thyromegaly. LUNGS: Clear to auscultation. Percussion note normal. Chest symmetrical. HEART: S1, S2, no S3. No murmurs. No cyanosis or clubbing. No ascites. Pulses: Dorsalis pedis and posterior tibial pulses +1 to +2 both sides. ABDOMEN: Soft. Non-tender. Bowel sounds active. No CVA tenderness. No mass felt. EXTREMITIES: Right lower extremity is much less than before. Right hip incision is healing well, no drainage, no evidence of infection. No edema. Full range of motion of all extremities, equal. NEUROLOGIC: No focal deficit. Cranial nerves II through XII are grossly intact. No headache, no double vision or headache. SKIN: Not dry. Intact. Turgor-normal. LYMPHATIC: No palpable lymph nodes/no lymphedema. MUSCULOSKELETAL: Normal joints with no swelling. Muscle tone is normal. LAB REVIEW: 05/14/16 06:00 05/14/16 06:00 05/14/16 06:00: WBC 9.51, RBC 3.57 L, Hgb 10.9 L, Hct 33.5 L, MCV 93.8, MCH 30.5 , MCHC 32.5, RDW Coeff of Sergio 15.4 H, Plt Count 400, Immature Gran % (Auto) 1.1 , Neut % (Auto) 62.2, Lymph % (Auto) 29.3, Cloud % (Auto) 6.4, Eos % (Auto) 0.5, Baso % (Auto) 0.5, Immature Gran # (Auto) 0.1, Neut # 5.9, Lymph # 2.8, Cloud # 0.6, Eos # 0.1, Baso # 0.1, PT 15.2 H, INR 1.48, Sodium 145, Potassium 3.5, Chloride 108 H, Carbon Dioxide 29, Anion Gap 11.5, BUN 10, Creatinine 0.79, Estimated GFR (MDRD) 97.00, BUN/Creatinine Ratio 12.65, Glucose 90, Calcium 10.1 , Total Bilirubin 0.85, AST 22, ALT 35, Alkaline Phosphatase 71, Total Protein 6.3, Albumin 3.0 L, Globulin 3.3, Albumin/Globulin Ratio 0.91 ASSESSMENT: 1. Right hip replacement, improving, on one Oxycodone a day for soreness. 2. Atrial fibrillation resolved, in sinus rhythm since being here at the hospital. Betapace 120 mg twice a day. INR 1.4 low, supplemented by Lovenox 70 mg daily; will give 14 mg of Coumadin today. PLAN: 1. As above in the assessment. 2. Will monitor INR Plan and coordination of the patient's care discussed in the presence of Thermoplastic Technician and nurse. CONDITION: Stable SCRIBED BY: HAIDER SHAW Director Of Planning scribed while in presence of service performed by Dr. RICHARD MENDOZA on 05/14/16 ([id number])
[2016-05-14] MEDS ORDERED: COUMADIN 2 MG, COUMADIN 5 MG PO SCH ×2 (17:00)
[2016-05-14] MEDS: COUMADIN 2 MG, COUMADIN 5 MG PO SCH ×2 (17:28)
[2016-05-14] MEDS: XALATAN OP SCH (20:01)
[2016-05-14] MEDS: XANAX PO PRN (20:01)
[2016-05-14] MEDS: LYRICA PO SCH (20:02)
[2016-05-14] MEDS: CRESTOR PO SCH (20:57)
[2016-05-15] MEDS: PROTONIX PO SCH (05:37)
[2016-05-15 05:46] VITALS: BP 92/52; TEMP 98.2
[2016-05-15 06:05] LABS: BASOPHILS # (AUTO) 0.1 K/uL (0-0.2); BASOPHILS % (AUTO) 0.6 % (0.0-3.0); EOSINOPHILS # (AUTO) 0.1 K/ul (0.0-0.7); EOSINOPHILS % (AUTO) 0.9 % (0.0-7.0); HEMATOCRIT 30.6 % (42.0-52.0); HEMOGLOBIN 9.8 g/dl (14.0-18.0); IMMATURE GRANULOCYTE % (AUTO) 0.6 % (0.0-5.0); LYMPHOCYTES # (AUTO) 3.3 K/uL (0.60-3.4); LYMPHOCYTES % (AUTO) 37.7 (10.0-50.0); MEAN CORPUSCULAR HEMOGLOBIN 30.2 pg (27.0-31.0); MEAN CORPUSCULAR VOLUME 94.4 fl (80.0-94.0); MONOCYTES # (AUTO) 0.7 K/uL (0.4-2.0); MONOCYTES % (AUTO) 7.8 (0-10); NEUTROPHILS # (AUTO) 4.6 K/ul (2.0-6.9); NEUTROPHILS % (AUTO) 52.4; PLATELET COUNT 375 10^3/uL (140-440); RED BLOOD COUNT 3.24 10^6/ul (4.70-6.10); WHITE BLOOD COUNT 8.84 K/ul (4.2-10.2)
[2016-05-15 06:16] LABS: PROTHROMBIN TIME 16.6 SEC (9.3-11.0)
[2016-05-15 06:26] LABS: ALBUMIN 2.7 g/dL (3.4-5.0); ANION GAP 8.8; BILIRUBIN,TOTAL 0.5 mg/dL (0.00-1.20); BUN/CREATININE RATIO 15.47; CALCIUM 9.5 mg/dL (8.2-10.2); CREATININE 0.84 mg/dL (0.60-1.10); POTASSIUM 3.8 mmol/L (3.5-5.1); TOTAL PROTEIN 5.4 g/dL (5.8-8.1)
[2016-05-15] MEDS: MIRALAX PO SCH (08:40)
[2016-05-15] MEDS: VITAMIN D PO SCH (08:41)
[2016-05-15] MEDS: OMEGA-3 FISH OIL PO SCH (08:41)
[2016-05-15] MEDS: BETAPACE PO SCH (08:41)
[2016-05-15] MEDS: CALCIUM 500 + VIT D 200 MG TABLET PO SCH (08:41)
[2016-05-15] MEDS: MULTIVITAMIN PO SCH (08:41)
[2016-05-15] MEDS: TRILEPTAL PO SCH (08:41)
[2016-05-15] MEDS: COLACE PO SCH (08:41)
[2016-05-15] MEDS: DYAZIDE PO SCH (08:41)
[2016-05-15] MEDS: [UNRECOGNIZED DRUG - OTHER] PO SCH (09:00)
--- NOTE | 2016-05-15 10:24 | PCM.PROG ---
Attending Provider: ATTENDING PROVIDER: Dr. RICHARD MENDOZA DATE OF SERVICE: 05/15/16 SUBJECTIVE: This 71 year old WHITE/ M was hospitalized 05/08/16. The patient is hospitalized in swing bed after right hip replacement. The patient's condition has improved. The problems were fever - one time, could be flu syndrome. The other problem was atrial fibrillation; he is in sinus alex since on Betapace b.i.d. Hemoglobin and hematocrit are stable. Incision is healing well. REVIEW OF SYSTEMS: CONSTITUTIONAL: No night sweats. No fatigue, malaise, lethargy. No fever or chills. HEENT: Eyes: No visual changes. No eye pain. No eye discharge. ENT: No runny nose. No epistaxis. No sinus pain. No odynophagia. No congestion. RESPIRATORY: No cough, no congestion. No hemoptysis. CARDIOVASCULAR: No angina symptoms. No CHF symptoms. No atypical chest pain for CAD. No palpitations. No shortness of breath. GASTROINTESTINAL: No abdominal pain. No nausea or vomiting. No diarrhea or constipation. No hematemesis. No hematochezia. GENITOURINARY: No urgency. No frequency. No dysuria. No hematuria. No obstructive symptoms. No discharge. No pain. No significant abnormal bleeding. MUSCULOSKELETAL: No musculoskeletal pain; no joint swelling. NEUROLOGICAL: Awake, alert, oriented to time, place and person. No headache. No neck pain. No syncope. No seizures. No dizziness. PSYCHIATRIC: Not anxious. No depression. No suicidal thoughts. No homicidal thoughts. SKIN: No rash. Hip incision healing well. ENDOCRINE: No unexplained weight loss. No weight gain. HEMATOLOGIC/LYMPHATIC: No anemia. No purpura. No petechiae. No prolonged or excessive bleeding. No palpable lymph nodes. PHYSICAL EXAMINATION: GENERAL: The patient is awake, alert and oriented, sitting on side of bed in no distress. VITAL SIGNS: Temperature 98.2 F, Pulse 97, Respiratory Rate 17, BP 92/52, Pulse Ox 95% HEENT: Head normocephalic, atraumatic. Eyes: Extraocular muscles are intact. Pupils are equal, round and reactive to light and accommodation. Ears: No lesions. Nose appeared normal. Throat: No exudate or erythema. NECK: Supple. No JVD, no carotid bruit. No lymphadenopathy or thyromegaly. LUNGS: Clear to auscultation. Percussion note normal. Chest symmetrical. HEART: S1, S2, no S3. No murmurs. No cyanosis or clubbing. No ascites. Pulses: Dorsalis pedis and posterior tibial pulses +1 to +2 both sides. ABDOMEN: Soft. Non-tender. Bowel sounds active. No CVA tenderness. No mass felt. EXTREMITIES: No edema. Full range of motion of all extremities, equal. NEUROLOGIC: No focal deficit. Cranial nerves II through XII are grossly intact. No headache, no double vision or headache. SKIN: Not dry. Intact. Turgor-normal. LYMPHATIC: No palpable lymph nodes/no lymphedema. MUSCULOSKELETAL: Normal joints with no swelling. Muscle tone is normal. LAB REVIEW: 05/15/16 05:30 05/15/16 05:30 05/15/16 05:30: WBC 8.84, RBC 3.24 L, Hgb 9.8 L, Hct 30.6 L, MCV 94.4 H, MCH 30.2, MCHC 32.0, RDW Coeff of Sergio 15.7 H, Plt Count 375, Immature Gran % (Auto) 0.6, Neut % (Auto) 52.4, Lymph % (Auto) 37.7, [place] % (Auto) 7.8, Eos % (Auto) 0.9, Baso % (Auto) 0.6, Immature Gran # (Auto) 0.1, Neut # 4.6, Lymph # 3.3, [place] # 0.7, Eos # 0.1, Baso # 0.1, PT 16.6 H, INR 1.61, Sodium 142, Potassium 3.8, Chloride 108 H, Carbon Dioxide 29, Anion Gap 8.8, BUN 13, Creatinine 0.84, Estimated GFR (MDRD) 90.00, BUN/Creatinine Ratio 15.47, Glucose 102, Calcium 9.5 , Total Bilirubin 0.50, AST 18, ALT 27, Alkaline Phosphatase 62, Total Protein 5.4 L, Albumin 2.7 L, Globulin 2.7, Albumin/Globulin Ratio 1.00 ASSESSMENT: 1. Right hip replacement, improving. 2. Atrial fibrillation resolved; in sinus alex on Betapace. PLAN: 1. Outpatient PT/OT postop hip replacement. 2. Continue all medications. 3. I will see the patient back in 3 to 4 days. 4. One extra Coumadin today. The patient has been given 14 mg of Coumadin the last two days extra to bump up INR. 5. Discharge home. Plan and coordination of the patient's care discussed in the presence of Principal Ios Developer and nurse. CONDITION: Stable SCRIBED BY: HAIDER SHAW Final Assembly Inspector scribed while in presence of service performed by Dr. RICHARD MENDOZA on 05/15/16 ([id number])
[2016-05-15] MEDS ORDERED: COUMADIN PO STA ×2 (13:47→13:48)
--- NOTE | 2016-05-20 11:48 | DS ---
DATE OF SERVICE: 05/15/16 FINAL DIAGNOSIS: 1. Total right hip arthroplasty 2. Decline in functioning and gait disturbance 3. Atrial Fibrillation (resolved sinus Bradycardia) 4. Status post failed cardioversion x3 at [facility] 5. Colonic Ileus, 06/21/13 6. Hypertension 7. Pulmonary embolism, status post jean-claude filter 8. DVT of the lower extremities, 1995 and 2012 9. Dyslipidemia 10.GERD 11.Osteoarthritis 12.DJD Spine 13.Congestive heart failure 14.Cholecystectomy 15.Lumbar surgery 16.Tonsillectomy 17.Shoulder arthroscopy 18.Colon surgery LAST VITALS: Temperature 98.2, pulse 97, respiratory 17, blood pressure 92/52 and pulse ox 95 % DISCHARGE INSTRUCTIONS: Discharge home today. Return to see Dr. Jarquin in one week. Keep appointment with Dr. Burden on 05/27/16 at 2:20pm. Keep appointment with [facility] Outpatient PT/OT on 05/19/16 at 2pm. Resume home medication as per list provided by the nursing staff. MEDICATIONS AT DISCHARGE: Xanax 0.25mg Po bedtime PRN Calcium 500+Vit D 200mg tablet one each PO daily Vitamin D 2,000 unit PO daily Nexium 40mg PO daily [place] 3 1,000mg Po daily Glucosamine and Chondroitin Cap one cap PO twice a day Xalatan 1 drop OP bedtime Multivitamin 1 cap PO daily Trileptal 150mg Po daily Oxycodone 10-20mg PO Q 4-6 hours PRN Lyrica 150mg PO bedtime Crestor 10mg PO bedtime Betapace 120mg PO twice a day Dyazide 1 capsule PO daily Warfarin Sodium 7mg PO daily @ 1700. ALLERGIES: Ampicillin Morphine NEW PRESCRIPTIONS: Dr. Burden 1. Diazepam 5mg, take one tablet by mouth every 6 hours as needed for anxiety of sleep. 2. Oxycodone HCL 10mg immediate release tablet, take one or two tablets by mouth every 4-6 house as needed for pain Dr. Jarquin 1. Betapace 120mg take one tablet by mouth twice daily. DIET INSTRUCTIONS: Healthy heart Stay well hydrated. ACTIVITY: Follow PT/OT advice according to Dr. Burden's instructions. Keep feet/legs elevated as much as possible. SMOKING: Non-smoker DISEASE SPECIFIC EDUCATION: Total right hip arthroplasty PT/OT followup Orthopedic follow up General medicine followup Home medications New prescriptions Activity HOSPITAL COURSE: The patient is a 71 year old male hospitalized in the swing bed after right hip replacement. The patient's course in the hospital is practically uneventful. He is Sotalol dose was decreased to 120mg twice a day. He has stayed into sinus rhythm with sinus bradycardia. The patient is highly motivated. One day during the stay he developed fever which subsided likely could be from flu syndrome. The patient's leg edema is much less on the right lower extremity that he had surgery done. His incision is clean no evidence of infection. His blood pressure is on the little lower side. The Betapace dose would be further reduced depending upon his rhythm and rate. He will be followed as an outpatient. The patient's INR was 1.6 two day in a roll. Extra 7mg were given both days. Labs on discharge: hgb 9.8, hct 30, WBC 8,800 normal differential, creatinine 0.7, BUN 10, potassium 3.5 and glucose 90. CONDITION: Stable. TIME SPENT: More than 60 minutes. MTDD
== END 2016-05-15 14:00 | disposition home or self-care (01) | DRG 560 ==
LOC: MEDSURG B 15:51
PROVIDERS: ADMIT Internal Medicine; ATTEND Internal Medicine
DX: Z47.1 Aftercare following joint replacement surgery (principal); D62 Acute posthemorrhagic anemia; Z96.641 Presence of right artificial hip joint; R00.1 Bradycardia, unspecified; I48.91 Unspecified atrial fibrillation; I10 Essential (primary) hypertension; I50.9 Heart failure, unspecified; E78.5 Hyperlipidemia, unspecified; M19.90 Unspecified osteoarthritis, unspecified site; M47.9 Spondylosis, unspecified; Z79.899 Other long term (current) drug therapy; Z79.01 Long term (current) use of anticoagulants; Z98.890 Other specified postprocedural states; Z86.718 Personal history of other venous thrombosis and embolism; Z86.711 Personal history of pulmonary embolism; Z95.828 Presence of other vascular implants and grafts
CPT/HCPCS: 36415; 80053; 81001; 85025; 85610; 87040; 87081; 93005; 93010; 97802

== ENCOUNTER 2016-06-01 08:00 | Outpatient (RCR) ==
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
--- NOTE | 2016-05-22 14:11 | RS.OPPTDN ---
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 Pain Assessment - Pain Description Pain Location: Right distal lateral thigh and right lateral calf. Pain Description: Sharp, Aching Pain Description: Constant manzo with varied intensity. Current Pain Intensity: 5-6/10 in lower leg and 4/10 lateral thigh Interventions - Exercise/Activities/Manual Therapy Exercises/Activities: 40 mins. of R hip LE strengthening with 3 # resistance , except for SLR's being AAROM.3/15 ankle pumps.QS,SAQ's,heelslides,hip abd/add, LAQ's.Standing hip flexion x 15 at end of session. Total minutes of Exercise: 40 Manual Therapy: na Total minutes of Manual Therapy: 0 HOME EXERCISE PROGRAM: Pain free AROM in all directions in supine. - Charges Total Direct Minutes: 40 Total Treatment Time: 40 Procedures billed for this date of service:: ex 3 Assessment: Patient has moderate weakness in the R hip flexors today,also reports sharp pain with end ROM of hip abduction ,but only aching at rest.Reminded to avoid exercises that elicit sharp pain. Patient Education: Education of diagnosis, Body/Joint mechanics, Home Exercise Program, Home Safety, Activity Modification, Education of Plan of Care Patient demonstrates compliance with HEP?: Yes Short Term Goals Goal #1: Right hip strength 4/5 througout Goal to be met by: 06/05/16 Goal #2: Pain is intermittent in RLE Goal to be met by: 06/05/16 Goal #3: Tinetti to decrease fall risk. Goal to be met by: 06/05/16 Goal #4: Independent with basic HEP Goal to be met by: 06/05/16 Alf Goals Goal #1: Normal gait pattern present. Goal to be met by: 06/26/16 Goal #2: Ambulates with min AD with even WS/WB Goal to be met by: 06/26/16 Goal #3: 5/5 right hip strength Goal to be met by: 06/26/16 Goal #4: Independent with DC HEP Goal to be met by: 06/26/16 Plan PLAN OF CARE EXPIRES ON:: 06/26/16 ORDER # VISITS AND/OR THROUGH DATE: 06/26/2016 PLAN: Continue Plan of Care
--- NOTE | 2016-05-25 15:28 | RS.OPPTDN ---
Subjective Date of Note: 05/25/16 Visit #: 3 Date of Evaluation: 05/19/16 Payer Source: Insurance Treatment Diagnosis: Right hip arthroplasty Current Subjective/complaints:: Patient reports doing his exercises at home and the last couple of days has been better ,regarding his hip pain. Pain Assessment - Pain Description Pain Location: Right distal lateral thigh and right lateral calf. Pain Description: Sharp, Aching Current Pain Intensity: not rated today Interventions - Exercise/Activities/Manual Therapy Exercises/Activities: 45 mins. of R hip LE strengthening with 3 # resistance , except for SLR's being AAROM.3/15 ankle pumps.QS,SAQ's,heelslides,hip abd/add, LAQ's.Standing hip flexion and abduction 3/15 each.15 leg press @ 45# , holding small therapy between his knees. Total minutes of Exercise: 45 Manual Therapy: na Total minutes of Manual Therapy: 0 HOME EXERCISE PROGRAM: Pain free AROM in all directions in supine. - Charges Total Direct Minutes: 45 Total Treatment Time: 45 Procedures billed for this date of service:: ex 3 Assessment: Patient has increased strength in the hip flexors ,still reports fatigue and elevated pain with active abduction today.He has good understanding of HEP. Patient Education: Education of diagnosis, Body/Joint mechanics, Home Exercise Program, Home Safety, Activity Modification, Education of Plan of Care Patient demonstrates compliance with HEP?: Yes Short Term Goals Goal #1: Right hip strength 4/5 througout Goal to be met by: 06/05/16 Progress towards Goal:: Progressing Goal #2: Pain is intermittent in RLE Goal to be met by: 06/05/16 Progress towards Goal:: Progressing Goal #3: Tinetti to decrease fall risk. Goal to be met by: 06/05/16 Goal #4: Independent with basic HEP Goal to be met by: 06/05/16 Snf Goals Goal #1: Normal gait pattern present. Goal to be met by: 06/26/16 Goal #2: Ambulates with min AD with even WS/WB Goal to be met by: 06/26/16 Goal #3: 5/5 right hip strength Goal to be met by: 06/26/16 Goal #4: Independent with DC HEP Goal to be met by: 06/26/16 Progress towards goal: Progressing Plan PLAN OF CARE EXPIRES ON:: 06/26/16 ORDER # VISITS AND/OR THROUGH DATE: 06/26/2016 PLAN: Continue Plan of Care
--- NOTE | 2016-05-29 09:26 | RS.OPPTDN ---
Subjective Date of Note: 05/27/16 Visit #: 4 Date of Evaluation: 05/19/16 Payer Source: Insurance Treatment Diagnosis: Right hip arthroplasty Current Subjective/complaints:: Reports doing his exercises at home ,but is cautious. Pain Assessment - Pain Description Pain Location: Right distal lateral thigh and right lateral calf. Pain Description: Sharp, Aching Pain Description: Constant manzo with varied intensity. Current Pain Intensity: not rated today Interventions - Exercise/Activities/Manual Therapy Exercises/Activities: 45 mins. of R hip LE strengthening ,beginnning with 3/15 on leg press @ 60 #,calf raises @45#.Standing mini-squats,marcning in place,hip abd/adduction. Total minutes of Exercise: 45 Manual Therapy: na Total minutes of Manual Therapy: 0 HOME EXERCISE PROGRAM: Pain free AROM in all directions in supine. - Charges Total Direct Minutes: 45 Total Treatment Time: 45 Procedures billed for this date of service:: ex 3 Assessment: Progressing ,reports the past two days he has noticed the R hip is feeling stronger for certain ADL,s.He fatigues easily in hip flexors,but no sharp pain.His gait pattern has slight decrease in R step length,compared to L. Patient Education: Education of diagnosis, Body/Joint mechanics, Home Exercise Program, Home Safety, Activity Modification, Education of Plan of Care Patient demonstrates compliance with HEP?: Yes Short Term Goals Goal #1: Right hip strength 4/5 througout Goal to be met by: 06/05/16 Progress towards Goal:: Progressing Goal #2: Pain is intermittent in RLE Goal to be met by: 06/05/16 Progress towards Goal:: Progressing Goal #3: Tinetti 20/28 to decrease fall risk. Goal to be met by: 06/05/16 Goal #4: Independent with basic HEP Goal to be met by: 06/05/16 Progress towards Goal:: Progressing [facility] Goals Goal #1: Normal gait pattern present. Goal to be met by: 06/26/16 Progress towards goal: Progressing Goal #2: Ambulates with min AD with even WS/WB Goal to be met by: 06/26/16 Goal #3: 5/5 right hip strength Goal to be met by: 06/26/16 Goal #4: Independent with DC HEP Goal to be met by: 06/26/16 Progress towards goal: Progressing Plan PLAN OF CARE EXPIRES ON:: 06/26/16 ORDER # VISITS AND/OR THROUGH DATE: 06/26/2016
--- NOTE | 2016-05-29 10:08 | RS.OPPTDN ---
Subjective Date of Note: 05/29/16 Visit #: 5 Date of Evaluation: 05/19/16 Payer Source: Insurance Treatment Diagnosis: Right hip arthroplasty Current Subjective/complaints:: Patient reports he feels he is improvingespecially this past week. Pain Assessment - Pain Description Pain Location: Right distal lateral thigh and right lateral calf. Pain Description: Sharp, Aching Current Pain Intensity: not rated today Interventions - Exercise/Activities/Manual Therapy Exercises/Activities: 45 mins. beginning with 10 mins. on bike,then R hip LE strengthening ,beginnning with 3/15 on leg press @ 60 #,calf raises @45# .Standing mini-squats,marcning in place,hip abd/adduction. Total minutes of Exercise: 45 Manual Therapy: na HOME EXERCISE PROGRAM: Pain free AROM in all directions in supine. - Charges Total Direct Minutes: 35 Total Treatment Time: 45 Procedures billed for this date of service:: ex 2 Assessment: Patient has increased strength in the hip flexors and abductors, improved eccentric control with returning from hip abduction.He has steady gait with R/W. Patient Education: Education of diagnosis, Body/Joint mechanics, Home Exercise Program, Home Safety, Activity Modification, Education of Plan of Care Patient demonstrates compliance with HEP?: Yes Short Term Goals Goal #1: Right hip strength 4/5 througout Goal to be met by: 06/05/16 Progress towards Goal:: Progressing Goal #2: Pain is intermittent in RLE Goal to be met by: 06/05/16 Progress towards Goal:: Progressing Goal #3: Tinetti 20/28 to decrease fall risk. Goal to be met by: 06/05/16 Goal #4: Independent with basic HEP Goal to be met by: 06/05/16 Progress towards Goal:: Progressing Board Mixer Tender Goals Goal #1: Normal gait pattern present. Goal to be met by: 06/26/16 Progress towards goal: Progressing Goal #2: Ambulates with min AD with even WS/WB Goal to be met by: 06/26/16 Progress towards goal: Progressing Goal #3: 5/5 right hip strength Goal to be met by: 06/26/16 Progress towards goal: Progressing Goal #4: Independent with DC HEP Goal to be met by: 06/26/16 Progress towards goal: Progressing Plan PLAN OF CARE EXPIRES ON:: 06/26/16 ORDER # VISITS AND/OR THROUGH DATE: 06/26/2016 PLAN: Progress Exercises
--- NOTE | 2016-06-01 09:05 | RS.OPPTDN ---
Subjective Date of Note: 06/01/16 Visit #: 6 Date of Evaluation: 05/19/16 Payer Source: Insurance Treatment Diagnosis: Right hip arthroplasty Current Subjective/complaints:: Patient reports he is doing his HEP a couple of times per day. Pain Assessment - Pain Description Pain Location: Right distal lateral thigh and right lateral calf. Pain Description: Sharp, Aching Current Pain Intensity: moderate Interventions - Exercise/Activities/Manual Therapy Exercises/Activities: 45 mins. R hip LE strengthening ,beginnning with 4/15 on leg press @ 75#,calf raises @45#.Standing mini-squats,marcning in place,hip abd/ adduction with 3# resistance .Seated hamstring curls ,3/15 with blue theraband.Ended session with gait training using cane and without for short distances,including side-stepping. Total minutes of Exercise: 45 Manual Therapy: na Total minutes of Manual Therapy: 0 HOME EXERCISE PROGRAM: Pain free AROM in all directions in supine,sit ,or standing.Recommended 2-3 x/day. - Charges Total Direct Minutes: 45 Total Treatment Time: 45 Procedures billed for this date of service:: ex 2,gt Assessment: Patient has increased strenght in quads and hamstrings,steadier gait .He has minimal antalgia present when ambualting without asistive device.He understands to use cane or walker for longer walking distances, especially [place]. Patient Education: Education of diagnosis, Body/Joint mechanics, Home Exercise Program, Home Safety, Activity Modification, Education of Plan of Care Patient demonstrates compliance with HEP?: Yes Short Term Goals Goal #1: Right hip strength 4/5 througout Goal to be met by: 06/05/16 Progress towards Goal:: Progressing Goal #2: Pain is intermittent in RLE Goal to be met by: 06/05/16 Progress towards Goal:: Progressing Goal #3: Tinetti / to decrease fall risk. Goal to be met by: 06/05/16 Goal #4: Independent with basic HEP Goal to be met by: 06/05/16 Progress towards Goal:: Progressing Qa Internship Goals Goal #1: Normal gait pattern present. Goal to be met by: 06/26/16 Progress towards goal: Progressing Goal #2: Ambulates with min AD with even WS/WB Goal to be met by: 06/26/16 Progress towards goal: Progressing Goal #3: 5/5 right hip strength Goal to be met by: 06/26/16 Progress towards goal: Progressing Goal #4: Independent with DC HEP Goal to be met by: 06/26/16 Progress towards goal: Progressing Plan PLAN OF CARE EXPIRES ON:: 06/26/16 ORDER # VISITS AND/OR THROUGH DATE: 06/26/2016 PLAN: Continue Plan of Care
== END 2016-06-02 ==
PROVIDERS: ATTEND Orthopaedic Surgery
DX: R26.9 Unspecified abnormalities of gait and mobility (principal); M79.604 Pain in right leg; M62.81 Muscle weakness (generalized); Z96.641 Presence of right artificial hip joint

== ENCOUNTER 2016-06-12 08:00 | Outpatient (RCR) ==
--- NOTE | 2016-06-05 08:54 | RS.OPPTDN ---
Subjective Date of Note: 06/05/16 Date of Evaluation: 05/19/16 Payer Source: Insurance Treatment Diagnosis: Right hip arthroplasty Current Subjective/complaints:: Pleased with his progress,has noticed the past couple of days the R hip feels stronger. Pain Assessment - Pain Description Pain Location: Right thigh. Pain Description: Dull Pain Description: Constant manzo with varied intensity. Current Pain Intensity: minimal Interventions - Exercise/Activities/Manual Therapy Exercises/Activities: 35 mins. R hip LE strengthening ,beginnning with 2/15 on leg press @ 75#,2/15 @ 90 #.3/[address],hip abduction and 3/10 sit to stand from chair.Ended session with side-stepping ,and supervision of 1. Total minutes of Exercise: 35 Manual Therapy: na Total minutes of Manual Therapy: 0 HOME EXERCISE PROGRAM: Pain free AROM in all directions in supine,sit ,or standing.Recommended 2-3 x/day. - Charges Total Direct Minutes: 35 Total Treatment Time: 35 Procedures billed for this date of service:: ex 2 Assessment: Patient has increased strenght in the R hip and LE,steadier gait present today ,with use of cane today,as opposed to the walker.He continues to be highly motivated to improve. Patient Education: Education of diagnosis, Body/Joint mechanics, Home Exercise Program, Home Safety, Activity Modification, Education of Plan of Care Patient demonstrates compliance with HEP?: Yes Short Term Goals Goal #1: Right hip strength 4/5 througout Goal to be met by: 06/05/16 Progress towards Goal:: Progressing Goal #2: Pain is intermittent in RLE Goal to be met by: 06/05/16 Progress towards Goal:: Progressing Goal #3: Tinetti / to decrease fall risk. Goal to be met by: 06/05/16 Goal #4: Independent with basic HEP Goal to be met by: 06/05/16 Progress towards Goal:: Progressing Environmental Services Technician Goals Goal #1: Normal gait pattern present. Goal to be met by: 06/26/16 Progress towards goal: Progressing Goal #2: Ambulates with min AD with even WS/WB Goal to be met by: 06/26/16 Progress towards goal: Progressing Goal #3: 5/5 right hip strength Goal to be met by: 06/26/16 Progress towards goal: Progressing Goal #4: Independent with DC HEP Goal to be met by: 06/26/16 Progress towards goal: Progressing Plan PLAN OF CARE EXPIRES ON:: 06/26/16 ORDER # VISITS AND/OR THROUGH DATE: 06/26/2016 PLAN: Progress Exercises
--- NOTE | 2016-06-08 09:10 | RS.OPPTDN ---
Subjective Date of Note: 06/08/16 Visit #: 8 Date of Evaluation: 05/19/16 Payer Source: Insurance Treatment Diagnosis: Right hip arthroplasty Current Subjective/complaints:: Patient reports doing his HEP regularly, concerned about his progress.I re-assured patient he is doing well,is only 5 weeks post-op. and not behind schedule. Pain Assessment - Pain Description Pain Location: Right thigh. Pain Description: Dull Pain Description: soreness Current Pain Intensity: minimal Interventions - Exercise/Activities/Manual Therapy Exercises/Activities: 35 mins. R hip LE strengthening ,beginnning with /315 on leg press @ 90#.06/[address]#.,hip abduction with 3# and 06/12 sit to stand from chair.Ended session with side-stepping ,and supervision of 1. Total minutes of Exercise: 35 Manual Therapy: na Total minutes of Manual Therapy: 0 HOME EXERCISE PROGRAM: Pain free AROM in all directions in supine,sit ,or standing.Recommended 2-3 x/day. - Charges Total Direct Minutes: 35 Total Treatment Time: 35 Procedures billed for this date of service:: ex 2 Assessment: Patient has increased strength in the R LE,steadier gait today, walking short distances without cane in the gym,also did side-stepping without the cane.He is compliant to HEP. Patient Education: Education of diagnosis, Body/Joint mechanics, Home Exercise Program, Home Safety, Activity Modification, Education of Plan of Care Patient demonstrates compliance with HEP?: Yes Short Term Goals Goal #1: Right hip strength 4/5 througout Goal to be met by: 06/05/16 Progress towards Goal:: Progressing Goal #2: Pain is intermittent in RLE Goal to be met by: 06/05/16 Progress towards Goal:: Progressing Goal #3: Tinetti / to decrease fall risk. Goal to be met by: 06/05/16 Progress towards Goal:: Progressing Goal #4: Independent with basic HEP Goal to be met by: 06/05/16 Progress towards Goal:: Partially Met Alf Goals Goal #1: Normal gait pattern present. Goal to be met by: 06/26/16 Progress towards goal: Progressing Goal #2: Ambulates with min AD with even WS/WB Goal to be met by: 06/26/16 Progress towards goal: Partially Met Goal #3: 5/5 right hip strength Goal to be met by: 06/26/16 Progress towards goal: Progressing Goal #4: Independent with DC HEP Goal to be met by: 06/26/16 Progress towards goal: Progressing Plan PLAN OF CARE EXPIRES ON:: 06/26/16 ORDER # VISITS AND/OR THROUGH DATE: 06/26/2016 PLAN: Continue Plan of Care
--- NOTE | 2016-06-09 10:27 | RS.CXNS ---
Date of scheduled appointment: 06/10/16 Type: Cancel (Has Dr. deshpande,plans to be here for PT on Wednesday06-12-16.)
--- NOTE | 2016-06-12 09:23 | RS.OPPTDN ---
Subjective Date of Note: 06/12/16 Visit #: 9 Date of Evaluation: 05/19/16 Payer Source: Insurance Treatment Diagnosis: Right hip arthroplasty Current Subjective/complaints:: Patient pleased with his progress,is aware of D/ C plan today.He is compliant to HEP. Pain Assessment - Pain Description Pain Location: Right thigh. Pain Description: Dull Pain Description: soreness Current Pain Intensity: minimal Interventions - Exercise/Activities/Manual Therapy Exercises/Activities: 35 mins. HEP review(copies given),Tinetti Assessment, Lower extremity scale done. Tinetti. Total minutes of Exercise: 35 Manual Therapy: na Total minutes of Manual Therapy: 0 HOME EXERCISE PROGRAM: Pain free AROM in all directions in supine,sit ,or standing.Recommended 2-3 x/day. - Charges Total Direct Minutes: 35 Total Treatment Time: 35 Procedures billed for this date of service:: ex 2 Assessment: Patient no longer requires skilled therapy,has good awareness of safety ,pain control and joint protection.He agrees with D/c plan today. Patient Education: Education of diagnosis, Body/Joint mechanics, Home Exercise Program, Home Safety, Activity Modification, Education of Plan of Care Patient demonstrates compliance with HEP?: Yes Short Term Goals Goal #1: Right hip strength 4/5 througout Goal to be met by: 06/05/16 Progress towards Goal:: Met Goal #2: Pain is intermittent in RLE Goal to be met by: 06/05/16 Progress towards Goal:: Met Goal #3: Tinetti to decrease fall risk. Goal to be met by: 06/05/16 () Progress towards Goal:: Met Goal #4: Independent with basic HEP Goal to be met by: 06/05/16 Progress towards Goal:: Partially Met Net Development Manager Goals Goal #1: Normal gait pattern present. Goal to be met by: 06/26/16 Progress towards goal: Partially Met Goal #2: Ambulates with min AD with even WS/WB Goal to be met by: 06/26/16 Progress towards goal: Met Goal #3: 5/5 right hip strength Goal to be met by: 06/26/16 Progress towards goal: Partially Met Goal #4: Independent with DC HEP Goal to be met by: 06/26/16 Progress towards goal: Progressing Plan PLAN OF CARE EXPIRES ON:: 06/26/16 ORDER # VISITS AND/OR THROUGH DATE: 06/26/2016 PLAN: Plan for Discharge
--- NOTE | 2016-06-16 11:19 | RS.OPPTDC ---
Date of Discharge: 06/12/16 Date of Evaluation: 05/19/16 Treatment Diagnosis: Right hip arthroplasty Current Complaints/Gains: Patient is very pleased with his progress and ready for DC. Pain Assessment - Pain Description Pain Location: Right thigh. Pain Description: Dull Pain Description: soreness Current Pain Intensity: minimal Functional Outcome Measure Tinetti: 27 - G Codes & Severity Modifier G Codes & Modifier: Mobility: Goal: CK. DC Status: CI Source of G Code score: Tinetti Interventions - Exercise/Activities/Manual Therapy Exercises/Activities: NA Manual Therapy: na HOME EXERCISE PROGRAM: Pain free AROM in all directions in supine,sit ,or standing.Recommended 2-3 x/day. - Charges Total Direct Minutes: na Total Treatment Time: na Procedures billed for this date of service:: na Assessment Assessment: Excellent progress with pt having met 5/8 goals. He is able to continue with HEP independently to continue with his current progress. Short Term Goals Goal #1: Right hip strength 4/5 througout Goal to be met by: 06/05/16 Progress towards Goal:: Met Goal #2: Pain is intermittent in RLE Goal to be met by: 06/05/16 Progress towards Goal:: Met Goal #3: Tinetti / to decrease fall risk. Goal to be met by: 06/05/16 () Progress towards Goal:: Met Goal #4: Independent with basic HEP Goal to be met by: 06/05/16 Progress towards Goal:: Partially Met Repairer General Goals Goal #1: Normal gait pattern present. Goal to be met by: 06/26/16 Progress towards goal: Partially Met Goal #2: Ambulates with min AD with even WS/WB Goal to be met by: 06/26/16 Progress towards goal: Met Goal #3: 5/5 right hip strength Goal to be met by: 06/26/16 Progress towards goal: Partially Met Goal #4: Independent with DC HEP Goal to be met by: 06/26/16 Progress towards goal: Progressing Plan Reason for Discharge:: No Further Skilled Therapy Indicated (patient is independent with HEP and agrees he is ready for DC)
== END 2016-07-03 ==
PROVIDERS: ATTEND Orthopaedic Surgery
DX: Z96.641 Presence of right artificial hip joint (principal)

== ENCOUNTER 2016-09-25 07:02 | Outpatient (CLI) ==
--- NOTE | 2016-09-25 09:42 | MRI ---
EXAM: MRI left knee without contrast. HISTORY: Left knee pain.. No left knee surgery reported. Popping.. TECHNIQUE: Using a local extremity coil on a high field strength magnet multiplanar multisequence m agnet resonance imaging was performed of the left knee without intravenous or intra-articular gadoli nium contrast. FINDINGS: I do not have prior radiographs of the left knee available for comparison at the time of this dictation. Overall examination is of limited diagnostic quality secondary to artifact/decreased [id number] -resolution. Within the medial compartment there is undersurface meniscal flap tear body displaced along the infe rior coronary recess . Undersurface tear/fraying posterior horn medial meniscus as well . medial co mpartment cartilage otherwise relatively congruent without focal underlying subchondral edema. Laron y productive osteophyte formation. Within the lateral compartment there is discoid like lateral meniscus. Tiny area of tear along the superior articulating surface middle 1/3 posterior horn. Approximate 8 mm area of chondrosis/cartil age ulceration over the weightbearing lateral tibial plateau. Productive osteophyte formation. Within the patellofemoral compartment the patella seated with intact patellar attachment of the medi al and lateral patellar retinaculum. Marked patellar chondrosis/chondromalacia patella with full-th ickness cartilage denudation over the lateral facet. Cartilage attenuation over the corresponding l ateral trochlear groove. No underlying subchondral edema. Productive osteophyte formation. Small left knee effusion. Prominent plica. No osteochondral loose bodies identified. Intact anter ior and posterior cruciate ligament fibers of normal orientation. The extensor mechanism is intact. Some distal quadriceps tendinosis with edematous suprapatellar fat. The medial collateral ligamen t as well as lateral collateral ligament complex and posterolateral corner intact. Small posterior joint extension/popliteal cyst.. IMPRESSION: Undersurface meniscal flap tear body medial meniscus displaced along the inferior coron emily recess. Undersurface tear/fraying posterior horn medial meniscus as well. Discoid like lateral meniscus. Tiny area of tear along the superior articulating surface middle 1/3 posterior horn. 8 mm area of chondrosis/cartilage ulceration over the weightbearing lateral tibial plateau. Marked patellar chondrosis/chondromalacia patella. Small left effusion. Small posterior joint extension/popliteal cyst. Intact cruciate and collateral ligaments. Distal quadriceps tendinosis with edematous suprapatellar fat. This can be seen with quadriceps/sup rapatellar fat pad impingement syndrome. Correlate clinically.
== END 2016-09-25 07:03 | disposition home or self-care (01) ==
LOC: RAD 07:02
PROVIDERS: ATTEND Internal Medicine
DX: M25.562 Pain in left knee (principal)

== ENCOUNTER 2017-02-23 06:36 | Day surgery (SDC) ==
[2017-02-23] MEDS ORDERED: LIDOCAINE 1% 20 ML MDV ID ONE (07:05)
[2017-02-23] MEDS ORDERED: LIDOCAINE HCL 2% LUER-JET ONE (08:06)
[2017-02-23] MEDS ORDERED: DIPRIVAN 20 ML VIAL IVP ONE (08:06)
[2017-02-23] MEDS ORDERED: VERSED ONE (08:06)
[2017-02-23 08:58] VITALS: BP 105/77; TEMP 98
--- NOTE | 2017-02-23 15:14 | OP ---
INDICATIONS FOR PROCEDURE: 72-year-old gentleman presents for endoscopy exam. He was having intermittent right upper quadrant discomfort. He tells that has improved since he went to b.i.d. Nexium. MEDICATIONS: SEE ANESTHESIA NOTES. PROCEDURE: ENDOSCOPY, ESOPHAGEAL BRUSHING. REPORT: The risks, benefits, alternatives and limitations were discussed in detail with the patient. Informed consent was obtained. After adequate sedation was achieved, the video endoscope was introduced in the posterior pharynx and esophagus under direct vision and I easily advanced down to the second portion of the duodenum. I then slowly withdrew. The duodenal mucosa appeared unremarkable as did the duodenal bulb. The antrum and body were relative unremarkabley. The scope was retroflexed to look at the cardia and fundus which was unremarkable. The scope was anteflexed and withdrawn back through the esophagus. Scattered throughout the esophagus mostly in the upper 2/ 3 there were a few white patches quite suggestive of Candidiasis. This was brushed for PREMA prep. No other abnormalities were noted. The patient tolerated the procedure well with stable vital signs and pulse oximetry throughout. IMPRESSION: 1. VERY MILD PATTI OF THE ESOPHAGUS 2. OTHERWISE UNREMARKABLE EXAM 3. HE IS CLINICALLY IMPROVED SINCE GOING TO B.I.D. NEXIUM RECOMMENDATIONS: 1. I will have him continue the b.i.d. Nexium for the time being. I will advise him after the holidays he can consider trying to wean off the evening dose of Nexium. 2. Will begin Nystatin Swish and Swallow b.i.d. for 7 days for his Candidiasis. 3. Return to the office as needed. ADDENDUM: After the procedure was complete, the PREMA prep possibly became contaminated. Therefore, it was not sent for PREMA testing. The appearance was quite consistent with Candidiasis and he will be treated with the Nystatin Swish and Swallow as described above. CC: DR. REJI WILD
== END 2017-02-23 09:20 | disposition home or self-care (01) ==
LOC: SURG 06:36
PROVIDERS: ATTEND Internal Medicine Gastroenterology
DX: R10.11 Right upper quadrant pain (principal); B37.81 Candidal esophagitis

== ENCOUNTER 2024-03-20 10:13 | Observation (INO) ==
--- NOTE | 2024-03-20 10:33 | ED.PDOC ---
General ED Provider: Dr. HANNAH CRUZ MD Chief Complaint: Non-specific Complaint Stated Complaint: Patient is a 79-year-old male that reported to the emergency department for numbness and tingling in his head and face and upper and lower extremities. Patient's a poor historian and stated that its gotten worse over the past couple days. I tried to ask when his last known normal was and he said it has been several months. He states that his being able to ambulate normally just started today. Patient stated that he has had a gait since this morning when he was at cardiac rehab. Patient stated that he had stents placed at [place] in November 2023. He stated that he was at cardiac rehab this morning and could not go on the treadmill due to his weakness, instability and gait and numbness and tingling all over his body. Patient denied any recent falls. Patient stated that he has had some slurred speech. 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 Last known well is again unknown at this time. Patient's vital signs are currently stable. Patient has a past medical history of A-fib, anxiety, generalized anxiety disorder, B12 deficiency, CRISELDA, OR with stent placement, dyslipidemia, GERD, and DVT. Patient states that nothing makes his symptoms better. Patient denied any chest pain, shortness of breath, nausea, vomiting, diarrhea, dizziness, loss of consciousness, or any other acute symptoms not currently mentioned in this HPI. NIH score 5. Vital signs stable. GCS 15. Time Seen by Provider: 03/20/24 10:14 Mode of Arrival: Walk-In Information Source: Patient Exam Limitations: No limitations Primary Care Provider: RICHARD MENDOZA MD Nursing and Triage Documentation Reviewed and Agree: Yes What is Opioid Naive?: *Opioid Naive implies the patient is not already taking opioids or not chronically receiving opioids on a daily basis. *PRN dosing is not "usually" associated with tolerance. *Patients are at higher risk of over-sedation and aspiration. What is Opioid Tolerant?: *Opioid Tolerance implies less than the expected response to an opioid. *Acquired tolerance is defined by the patient taking 60mg of oral morphine daily (or equianalgesic dose of another opioid) for 1 week or more. *Often associated with chronic pain. *May take more than usual dose to achieve desired pain control. Review of Systems Review Of Systems Constitutional: Reports Weakness Eyes: Reports No symptoms Ears, Nose, Mouth, Throat: Reports No symptoms Respiratory: Reports No symptoms Cardiac: Reports No symptoms GI: Reports No symptoms : Reports No symptoms Musculoskeletal: Reports No symptoms Skin: Reports No symptoms Neurological: Reports Anxiety, Numbness (Numbness and tingling in the head, face, upper and lower extremities bilaterally.) and Tingling Endocrine: Reports No symptoms Hematologic/Lymphatic: Reports No symptoms All Other Systems: Reviewed and Negative [facility] Medical History 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 - Personal history of other diseases of the nervous system and sense organs (ICD-10) History of DVT of lower extremity Z86.718 - Personal history of other venous thrombosis and embolism (ICD-10) History of pulmonary embolism Z86.711 - Personal history of pulmonary embolism (ICD-10) History of nephrolithiasis Z87.442 - Personal history of urinary calculi (ICD-10) Social History Smoking and tobacco status: Never smoker Alcohol intake: never Substance use type: does not use Special emil needs: No Agree to transfusion: Yes Adopted: No Caregiver/support person: No Foster care: No Household members: spouse Housing: house Marital status: M Lives independently: Yes Number of children: 2 Financial difficulty paying for basics: not very hard service: No USP: No Current occupational status: employed Current occupation: [employer] Pets and animals: No History of recent travel: No Sexually active: No Do you think of yourself as: straight/heterosexual Current gender identity: male Seatbelt use: always Helmet use: No Drives intoxicated or rides with intoxicated starting gate driver: No Water heater temperature set < 120 degrees: Yes Working smoke detector in home: Yes Fire extinguisher in home: Yes Carbon monoxide detector in home: Yes Firearms in home: No Surgical History Status post total hip replacement, 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 Z96.642 - Presence of left artificial hip joint (ICD-10) Physical Exam Physical Exam Appearance: Reports No pain distress, Well-nourished and Other (Patient ambulated into the emergency department with an ataxic gait.) Ill-appearing: None Pain Distress: None Eyes: Reports GREER, EOMI and Conjunctiva clear ENT: Reports Ears normal, Nose normal and Oropharynx normal Neck: Supple Respiratory: Reports Airway patent, Breath sounds clear, Breath sounds equal and Respirations nonlabored Cardiovascular: Reports RRR, Pulses normal, No rub and No murmur GI/: Reports Soft, Nontender, No masses, Bowel sounds normal and No Organomegaly Musculoskeletal: Reports Normal strength, ROM intact, No calf tenderness and Other (Strength in the upper lower extremities 5 out of 5 bilaterally.) Skin: Reports Warm, Dry and Normal color Neurological: Reports Motor intact, Cranial nerves intact, Alert, Oriented and Other (Patient had mild right facial drooping. Mild speech slurring noted. NIH score 5.) Psychiatric: Reports Affect appropriate and Mood appropriate NIH Stroke Scale 1a. Level of Consciousness: 0=Alert and keenly responsive 1b. Level of Consciousness Questions: 0=Answers correctly to two questions 1c. Level of Consciousness Commands: 0=Performs two tasks correctly 2. Best Gaze: 0=Normal 3. Visual: 0=No visual loss 4. Facial Palsy: 1=Minor paresis (flattened nasolabila fold) 5a. Motor Left Arm: 0=No drift,arm holds 90 degrees for 10 sec., leg 30 degrees for 5 sec. 5b. Motor Right Arm: 0=No drift,arm holds 90 degrees for 10 sec., leg 30 degrees for 5 sec. 6a. Motor Left Le=No drift,arm holds 90 degrees for 10 sec., leg 30 degrees for 5 sec. 6b. Motor Right Le=No drift,arm holds 90 degrees for 10 sec., leg 30 degrees for 5 sec. 7. Limb Ataxia: 1=Present in one limb 8. Sensory: 1=Mild to moderate sensory loss 9. Best Language: 1=Mild to moderate aphasia, can express 10. Dysarthria: 1=Mild to moderate, but can be understood 11. Extincion and Inattention: 0=Normal Stroke Scale Total: 5 Course Course 03/20/24 11:13 03/20/24 11:36 Orders, Labs, Meds: Lab Review 03/20/24 03/20/24 11:13 11:36 WBC 7.80 RBC 5.56 Hgb 15.6 Hct 49.6 MCV 89.2 MCH 28.1 MCHC 31.5 L RDW Coeff of Sergio 15.2 H Plt Count 155 Immature Gran % (Auto) 0.3 Neut % (Auto) 57.4 Lymph % (Auto) 32.9 [place] % (Auto) 8.3 Eos % (Auto) 0.8 Baso % (Auto) 0.3 Neut # (Auto) 4.5 Lymph # (Auto) 2.6 [place] # (Auto) 0.7 Eos # (Auto) 0.1 Baso # (Auto) 0.0 Immature Gran # (Auto) 0.0 PT 11.5 H INR 1.12 APTT 24.2 Sodium 140.3 Potassium 4.20 Chloride 108.8 H Carbon Dioxide 23.2 Anion Gap 12.50 BUN 17.6 Creatinine 0.97 Estimated GFR (MDRD) 75.00 BUN/Creatinine Ratio 18.14 Glucose 97.9 Calcium 10.02 Total Bilirubin 1.39 H AST 23.3 ALT 17.5 Alkaline Phosphatase 54.4 L Troponin I < 0.012 Total Protein 6.66 Albumin 4.08 Globulin 2.58 Albumin/Globulin Ratio 1.58 Orders Category Date Time Status EKG-(ED ONLY) Stat CARDIO 03/20/24 10:25 Completed NPO REMINDER: IMAGING ONCE CARE 03/20/24 10:25 Completed ACCUCHECK (ED) [ED ACCUCHECK ASSESSMENT] .ONCE EMERGENCY 03/20/24 10:28 Active ED ACCUCHECK ASSESSMENT .ONCE EMERGENCY 03/20/24 10:25 Active ED APPLY O2 .ONCE EMERGENCY 03/20/24 10:25 Active ED WINDSCREEN FITTER APPLIED .ONCE EMERGENCY 03/20/24 10:25 Active ED IV/MEDIPORT/POWERPORT .ONCE EMERGENCY 03/20/24 10:25 Active ED NEUROLOGICAL CHECKS Q15MIN EMERGENCY 03/20/24 10:25 Completed CBC W/ AUTO DIFF Stat LAB 03/20/24 11:13 Completed COMPREHENSIVE METABOLIC PANEL Stat LAB 03/20/24 11:36 Completed PARTIAL THROMBOPLASTIN TIME Stat LAB 03/20/24 11:13 Completed PT WITH INR Stat LAB 03/20/24 11:13 Completed TROPONIN I Stat LAB 03/20/24 11:36 Completed 0.9 % Sodium Chloride [Saline Flush] Meds 03/20/24 10:25 Active 1 syr IVF PRN PRN Aspirin [Aspirin Chewable] Meds 03/20/24 11:08 Discontinued 324 mg PO ONCE STA Iohexol [Omnipaque 350 mg/ml 100Ml] Meds 03/20/24 12:07 Discontinued 100 [address] IVP ONCE [address] CERVICAL SPINE W/O CONTRAST Stat RADS 03/20/24 10:[address] HEAD W/O CONTRAST Stat RADS 03/20/24 10:24 Completed CTA ANGIO HEAD Stat RADS 03/20/24 10:25 Completed CTA ANGIO NECK Stat RADS 03/20/24 10:25 Completed Medications Generic Name Dose Route Start Last Admin Trade Name Freq PRN Reason Stop Dose Admin Sodium Chloride 1 syr 03/20/24 10:25 0.9% Sodium Chloride 10 Ml Disp.Syrin IVF PRN PRN To flush IV Discontinued Medications Generic Name Dose Route Start Last Admin Trade Name Freq PRN Reason Stop Dose Admin Aspirin 324 mg 03/20/24 11:08 03/20/24 11:23 Aspirin 81 Mg Tab.Chew PO 03/20/24 11:09 324 mg ONCE STA Administration Iohexol 100 ml 03/20/24 12:07 03/20/24 12:35 Iohexol 350 Mg/Ml 100ml IVP 03/20/24 12:08 100 ml ONCE ONE Administration Vital Signs: Temp Pulse Resp BP Pulse Ox 03/20/24 10:17 97.3 F L 108 H 20 133/96 H 95 Physician Progress Note: Patient is a 79-year-old male that reported to the emergency department for numbness and tingling in his head and face and upper and lower extremities. Patient's a poor historian and stated that its gotten worse over the past couple days. I tried to ask when his last known normal was and he said it has been several months. He states that his being able to ambulate normally just started today. Patient stated that he has had a gait since this morning when he was at cardiac rehab. Patient stated that he had stents placed at [place] in November 2023. He stated that he was at cardiac rehab this morning and could not go on the treadmill due to his weakness, instability and gait and numbness and tingling all over his body. Patient denied any recent falls. Patient stated that he has had some slurred speech. 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 Last known well is again unknown at this time. Patient's vital signs are currently stable. Patient has a past medical history of A-fib, anxiety, generalized anxiety disorder, B12 deficiency, CRISELDA, OR with stent placement, dyslipidemia, GERD, and DVT. Patient states that nothing makes his symptoms better. Patient denied any chest pain, shortness of breath, nausea, vomiting, diarrhea, dizziness, loss of consciousness, or any other acute symptoms not currently mentioned in this HPI. NIH score 5. Vital signs stable. GCS 15. -Patient is a very poor historian and it is unknown when the patient's last known true well was. will work this patient up to rule out CVA v Ramirez's Palsy. Patient's vital signs are stable. Patient's GCS is 15. Again patient's NIH score is 5 at the current time. -Will order CT of the head without contrast. -Will order CTA of head and neck. -Will order baseline labs. -There is ow suspicion for acute cardiopulmonary processes to include but not limited to ACS, OR, PE, pneumothorax, dissection or tamponade. Review of his medical record does demonstrate he had an echocardiogram within the last year that has a near normal ejection fraction. History of chronic kidney disease could be a component. Will order EKG and troponin. -EKG shows atrial fibrillation with a rate of 89 bpm. Low voltage QRS noted. No acute ST elevations noted. This was interpreted by the ER physician. -CT of the head shows no acute intercranial bleed or pathology. Spoke to Dr. Bautista radiologist about this patient. Will order CTA of the head and neck. In the meantime we will give p.o. aspirin 325 mg. -CBC unremarkable. CMP unremarkable and troponin negative. -CT of the cervical spine showed C5-C6 degenerative disc disease. It also showed multi level foraminal narrowing without stenosis. -CTA of the head showed no large vessel occlusion or high grade stenosis within the [place]. -CTA of the neck No internal carotid or vertebral artery stenosis. -([id number]) spoke to the hospitalist here at [facility], Pio Cuevas NP about admission for this patient. I discussed the rule out for CVA however we cannot rule out patient has had a TIA. She agrees to admit the patient for generalized weakness at this time we will work him up further as needed. At the time of admission patient's vital signs are stable. Spoke to patient at bedside he agrees to admission and has a GCS of 15. Discharge Plan Discharge Patient Disposition: PLACED OBSERVATION Discharge Problem: TIA (transient ischemic attack), Chronic a-fib, Generalized weakness Degenerative joint disease of cervical spine Qualifiers: Spinal osteoarthritis complication: with radiculopathy Qualified Code(s): M 47.22 - Other spondylosis with radiculopathy, cervical region Did you review [place] VISUAL MANAGER for ALL controlled substances?: Not Applicable ED Provider: HANNAH CRUZ Condition: Stable [place]ita Coma Scale [place] Coma Scale Eye Opening Response: Spontaneously Best Verbal Response: Oriented to Time, Place, and Person Best Motor Resposne: Obeys Commands Chiquita Coma Scale Score Total: 15 Response Scores: Best Response = 15 Comatose Client = 8 or Less Totally Unresponsive = 3
--- NOTE | 2024-03-20 11:12 | CT ---
EXAMINATION: HEAD CT WITHOUT CONTRAST HISTORY: Dysarthria and numbness in the face. TECHNIQUE: Noncontrast CT of the brain was performed with images acquired from skull base to vertex. 2-D coronal and sagittal reformatted images were obtained from the axial source images. Contrast Dose: None. CT Dose Reduction Techniques Performed: Yes. COMPARISON: 07/06/2023 FINDINGS: Stable mild to moderate atrophy. No intracranial hemorrhage or significant extra-axial fluid collection. No region of abnormal low attenuation in the brain. Friedman white differentiation is preserved. No mass effect or midline shift. No hydrocephalus. Left cataract surgery, again noted. The visualized mastoid air cells and paranasal sinuses are clear. IMPRESSION: 1. No acute intracranial findings. 2. Stable mild to moderate atrophy. I called the findings to Dr. Armas in the ER on 03/20/2024 at 11:[address] scans are performed using dose optimization techniques as appropriate to the performed exam an d include at least one of the following: Automated exposure control, adjustment of the mA and/or kV according t o size, and the use of iterative reconstruction technique.
[2024-03-20 11:18] LABS: BASOPHILS % (AUTO) 0.3 % (0.0-3.0); EOSINOPHILS # (AUTO) 0.1 K/ul (0.0-0.7); EOSINOPHILS % (AUTO) 0.8 % (0.0-7.0); HEMATOCRIT 49.6 % (42.0-52.0); HEMOGLOBIN 15.6 g/dl (14.0-18.0); IMMATURE GRANULOCYTE % (AUTO) 0.3 % (0.0-5.0); LYMPHOCYTES # (AUTO) 2.6 K/uL (0.60-3.4); LYMPHOCYTES % (AUTO) 32.9 (10.0-50.0); MEAN CORPUSCULAR HEMOGLOBIN 28.1 pg (27.0-31.0); MEAN CORPUSCULAR HGB CONC 31.5 (31.8-35.4); MEAN CORPUSCULAR VOLUME 89.2 fl (80.0-94.0); MONOCYTES # (AUTO) 0.7 K/uL (0.4-2.0); MONOCYTES % (AUTO) 8.3 (0-10); NEUTROPHILS # (AUTO) 4.5 K/ul (2.0-6.9); NEUTROPHILS % (AUTO) 57.4 % (42.2-75.2); PLATELET COUNT 155 10^3/uL (140-440); RDW COEFFICIENT OF VARIATION 15.2 % (11.6-14.8); RED BLOOD COUNT 5.56 10^6/ul (4.70-6.10)
--- NOTE | 2024-03-20 11:19 | CT ---
EXAM: CT SCAN CERVICAL SPINE HISTORY: Upper extremity radiculopathy COMPARISON: None. FINDINGS: Helically acquired axial images obtained through the cervical spine utilizing 2.5-mm colli mation. Sagittal and coronal reconstructions were imaged and reviewed.. The vertebral bodies normal height and alignment. The facet joints intact. Degenerate disc disease is noted at C5-C6.. There is nuchal"ossification Moderate degenerative changes noted about the predental space At C3-C4 there is mild right neural foraminal narrowing secondary to uncovertebral and facet hypertrophy. At C4-C5 there is mild central protrusion. There is mild narrowing of the left neural foramen secondary to un covertebral degenerative changes.. . At C5-C6 there is bilateral neural foraminal narrowing left greater than right secondary to uncove rtebral degenerative change. The central canal is patent At C6-C7 and C7-T1 there is mild left neur al foraminal narrowing secondary to uncovertebral degenerative changes.. IMPRESSION: Degenerate disc disease C5-C6 Multilevel neural foraminal narrowing without central canal stenosis All CT scans are performed using dose optimization techniques as appropriate to the performed exam an d include at least one of the following: Automated exposure control, adjustment of the mA and/or kV according t o size, and the use of iterative reconstruction technique.
[2024-03-20] MEDS: ASPIRIN CHEWABLE PO STA (11:23)
[2024-03-20 11:55] LABS: ALANINE AMINOTRANSFERASE 17.5 U/L (0-50); ALBUMIN 4.08 g/dL (3.5-5.0); ALKALINE PHOSPHATASE 54.4 U/L (56-119); ASPARTATE AMINO TRANSFERASE 23.3 U/L (17-59); BILIRUBIN,TOTAL 1.39 mg/dL (0.2-1.3); BLOOD UREA NITROGEN 17.6 mg/dL (9-20); CALCIUM 10.02 mg/dL (8.4-10.2); CARBON DIOXIDE 23.2 mmol/L (22-30.0); CHLORIDE 108.8 mmol/L (98-107); CREATININE 0.97 mg/dL (0.60-1.10); GLUCOSE 97.9 mg/dL (74-106); SODIUM 140.3 mmol/L (134.5-145); TOTAL PROTEIN 6.66 g/dL (6.3-8.2)
[2024-03-20 12:06] LABS: TROPONIN I < 0.012 ng/ml (0.0000-0.120)
[2024-03-20 12:11] LABS: PARTIAL THROMBOPLASTIN TIME 24.2 SEC (23.9-40.0); PROTHROMBIN TIME 11.5 SEC (9.3-11.0)
[2024-03-20] MEDS: OMNIPAQUE 350 MG/ML 100ML IVP ONE (12:35)
--- NOTE | 2024-03-20 13:45 | CT ---
EXAM: CTA HEAD HISTORY: Stroke symptoms. TECHNIQUE: CT angiography of the head was performed with 3D/MIP coronal and sagittal reconstructions for evaluation of the [place]. COMPARISON: Same day brain CT FINDINGS: There is atherosclerotic calcification of the cavernous and supraclinoid internal carotid arteries. The anterior and middle cerebral arteries are normal in contour and caliber without large vessel occl usion. The vertebrobasilar system is patent. The superior cerebellar and posterior cerebral arteries are no rmal in contour and caliber. There is no intracranial aneurysm or arteriovenous malformation. IMPRESSION: No large vessel occlusion or high grade stenosis within the [place]. All CT scans are performed using dose optimization techniques as appropriate to the performed exam an d include at least one of the following: Automated exposure control, adjustment of the mA and/or kV according t o size, and the use of iterative reconstruction technique.
--- NOTE | 2024-03-20 13:48 | CT ---
EXAMINATION: COMPUTED TOMOGRAPHY ANGIOGRAPHY (CTA) OF THE NECK WITH AND WITHOUT CONTRAST HISTORY: Stroke-like symptoms. TECHNIQUE: Computed tomographic angiography was obtained from aortic arch to the [place] with a nd without administration of intravenous contrast. IV Contrast: 100 mL of Omnipaque 350. 3D/MIP/VR images were utilized. CT Dose Reduction Techniques Employed: Yes COMPARISON: CTA head 03/20/2024, CT cervical spine 03/20/2024 FINDINGS: NECK ANGIOGRAPHIC FINDINGS: Great Vessels: Normal configuration of the great vessels. Normal branching of aortic arch vessels. Mild atherosclerotic plaque of the aorta. Common Carotid Arteries: - Right: Normal course and caliber. No atherosclerotic plaque. - Left: Normal course and caliber. No atherosclerotic plaque. Internal Carotid Arteries: - Right: Normal course. Mild atherosclerotic plaque. 0% narrowing at the carotid bifurcation by BROOKE CET criteria. - Left: Normal course. Mild atherosclerotic plaque. 0% narrowing at the carotid bifurcation by NASC ET criteria. Vertebral Arteries: Co-dominant. - Right: Normal course and caliber. - Left: Normal course and caliber. SOFT TISSUE NECK: No lymphadenopathy. The muscles of the neck are normal. Fascial planes are preserved and the superf icial and deep spaces of the neck are normal. The visualized airway is patent. Thyroid gland is nor mal. No fracture. Please see the concurrently dictated CT of the cervical spine for detailed evaluation. Limited examination of the superior thorax is normal. IMPRESSION: No internal carotid or vertebral artery stenosis. All CT scans are performed using dose optimization techniques as appropriate to the performed exam an d include at least one of the following: Automated exposure control, adjustment of the mA and/or kV according t o size, and the use of iterative reconstruction technique.
[2024-03-20] MEDS ORDERED: TYLENOL PO PRN (14:41)
[2024-03-20 14:42] LABS: SARS COV-2 RNA RAPID NAAT NEGATIVE (NEGATIVE)
--- NOTE | 2024-03-20 14:52 | DI ---
EXAM: CHEST ONE VIEW, FRONTAL VIEW ONLY. HISTORY: Weakness. COMPARISON: 02/11/2024. FINDINGS: Heart is enlarged. Atherosclerotic calcifications present but there is no vascular conges tion. Linear opacities seen at the lung bases, stable from prior imaging. Lungs otherwise clear. N o pleural effusion or pneumothorax identified. Left shoulder plasty hardware noted. Old T12 roseanna zach deformity noted. IMPRESSION: No acute process.
[2024-03-20 15:08] LABS: LDL CHOLESTEROL,CALCULATED 56 mmol/L; TRIGLYCERIDES 128.5 mg/dL (0-150); VLDL CHOLESTEROL 26 mg/dL (2-30)
--- NOTE | 2024-03-20 15:16 | PCM ---
Date of Service Date Seen by Provider: 03/20/24 Time Seen by Provider: 15:15 Admit Day/Time Admission Date: 03/20/24 Reason for Admission Chief Complaint: WEAKNESS, [facility] Provider Hospital Provider: VIVIENNE STAFFORD, [facility] [place] Primary Care Physician Primary Care Physician: RICHARD JARQUIN MD History of Present Illness History of Present Illness: 79 yo male with pmh of CAD with stents, HTN, Afib, CRISELDA, CHFpEF, GERD, and chronic facial deformity since presented to the ER with complaints of generalized weakness, dizziness, and numbness and tingling to the arms, legs, and R side of head. States that this has been intermittent over the last several weeks. Recently had decrease in his metoprolol due to his provider believing this might be the contributing factor to the dizziness. Has not had MRI or fu rther work-up for dizziness. Has no focal deficits. ER work-up negative for acute findings. States that this last episode occurred when he was getting off the treadmill in cardiac rehab today. States that the dizziness episodes occur with exertion and the weakness occurs after periods of activity. Denies any chest pain, palpitations, vision changes, shortness of breath. Has checked his heart rate at home and the highest it has been is around 108. He most recently had stents placed in November [address] [facility] [address] Vazquez. Reports he was told he has other blockages that were at 30% but in small vessels that they were unable to stent. Reports dizziness and numbness is much better at this time but "just wants to get to the bottom of this". Admitted to med/surg observation. Case Discussed With Case Discussed With: Patient's case was discussed with the ER Physicians, Dr. 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 Z96.642 - Presence of left artificial hip joint (ICD-10) Social History Smoking and tobacco status: Never smoker Alcohol intake: never Substance use type: does not use Special emil needs: No Agree to transfusion: Yes Adopted: No Caregiver/support person: No Foster care: No Household members: spouse Housing: house Marital status: M Lives independently: Yes Number of children: 2 Financial difficulty paying for basics: not very hard service: No CHCF: No Current occupational status: employed Current occupation: [employer] Pets and animals: No History of recent travel: No Sexually active: No Do you think of yourself as: straight/heterosexual Current gender identity: male Seatbelt use: always Helmet use: No Drives intoxicated or rides with intoxicated driver operator: No Water heater temperature set < 120 degrees: Yes Working smoke detector in home: Yes Fire extinguisher in home: Yes Carbon monoxide detector in home: Yes Firearms in home: No Allergies Allergies Allergy/AdvReac Type Severity Reaction Status Date / Time ampicillin AdvReac Unknown Unknown Verified 03/20/24 11:11 morphine AdvReac Unknown Unknown Verified 03/20/24 11:11 dabigatran etexilate (From AdvReac Anaphylaxis Verified 03/20/24 11:11 Pradaxa) Current Medications Home Medications multivitamin 1 cap PO DAILY 06/21/13 [History Confirmed 03/20/24 Last Taken 02/22/17] calcium 600 mg (as carbonate)-vitamin D3 10 mcg (400 unit) tablet 1 ea PO DAILY 05/08/16 [History Confirmed 03/20/24 Last Taken 03/20/24] latanoprost 0.005 % eye drops 1 drp .ROUTE BEDTIME 05/08/16 [History Confirmed 03/20/24 Last Taken 02/22/17] timolol maleate 0.5 % eye drops 1 drp BOTHEYES BID 02/23/17 [History Confirmed 03/20/24 Last Taken 02/22/17] tamsulosin 0.4 mg capsule (Flomax) 0.4 mg PO QDAY #30 caps 06/25/22 [Rx Confi rmed 03/20/24 Last Taken 03/20/24] gabapentin 300 mg capsule 300 mg PO BID 07/07/22 [History Confirmed 03/20/24 Last Taken 03/20/24] empagliflozin 10 mg tablet (Jardiance) 10 mg PO QDAY 12/23/22 [History Confirmed 03/20/24 Last Taken 03/20/24] oxycodone-acetaminophen 10 mg-325 mg tablet 1 tab PO BID PRN pain 12/23/22 [History Confirmed 03/20/24 Last Taken 03/20/24] dorzolamide 22.3 mg-timolol 6.8 mg/mL eye drops 1 drp ophthalmic (eye) BID 11/09/23 [History Confirmed 03/20/24 Last Taken 03/20/24] glucosamine-chondroitin 1,500 mg -1,200 mg/30 mL oral liquid 30 ml PO DAILY 11/09/23 [History Confirmed 03/20/24 Last Taken 03/20/24] clopidogrel 75 mg tablet (Plavix) 75 mg PO QDAY 11/23/23 [History Confirmed 03/20/24 Last Taken Unknown] docusate sodium 100 mg capsule 100 mg PO BID 11/23/23 [History Confirmed 03/20/24 Last Taken 03/20/24] nitroglycerin 0.4 mg sublingual tablet 0.4 mg sublingual Q5M PRN chest pain 11/23/23 [History Confirmed 03/20/24 Last Taken Unknown] polyethylene glycol 3350 17 gram/dose oral powder (Miralax) 17 g PO QDAY 11/23/23 [History Confirmed 03/20/24 Last Taken Unknown] Maalox/Benadryl/Viscous Lidocaine EQ 10 ml PO TID 12/21/23 [History Confirmed 03/20/24 Last Taken Unknown] furosemide 40 mg tablet (Lasix) 40 mg PO QDAY PRN edema 12/21/23 [History Confirmed 03/20/24 Last Taken Unknown] pantoprazole 20 mg tablet,delayed release 40 mg PO BID 12/21/23 [History C onfirmed 03/20/24 Last Taken 03/20/24] potassium chloride 20 mEq tablet,extended release 20 meq PO ONCE PRN while taking Lasix 12/21/23 [History Confirmed 03/20/24 Last Taken Unknown] ranolazine 500 mg tablet,extended release,12 hr 500 mg PO Q12H 12/21/23 [History Confirmed 03/20/24 Last Taken 03/20/24] rosuvastatin 40 mg tablet 40 mg PO QDAY 12/21/23 [History Confirmed 03/20/24 Last Taken 03/20/24] spironolactone 25 mg tablet 12.5 mg PO QDAY 12/21/23 [History Confirmed 03/20/24 Last Taken 03/20/24] alprazolam 0.25 mg tablet 0.25 mg PO TID PRN Anxiety #90 tabs 01/20/24 [Rx Confirmed 03/20/24 Last Taken Unknown] apixaban 5 mg tablet (Eliquis) 5 mg PO BID #60 tabs 02/01/24 [Rx Confirmed 03/20/24 Last Taken 03/20/24] silver sulfadiazine 1 % topical cream 1 applic topical QDAY #20 grams 02/01/24 [Rx Confirmed 03/20/24 Last Taken 03/19/24] ezetimibe 10 mg tablet (Zetia) 10 mg PO QDAY #90 tabs 02/09/24 [Rx Confirmed 03/20/24 Last Taken 03/19/24] sucralfate 1 gram tablet (Carafate) 1 g PO TID #90 tabs 02/17/24 [Rx Confirmed 03/20/24 Last Taken 03/20/24] brimonidine 0.2 % eye drops 1 drp BOTHEYES BID 03/20/24 [History Confirmed 03/20/24 Last Taken Unknown] metoprolol succinate 25 mg tablet,extended release 24 hr 25 mg PO BID 03/20/24 [History Confirmed 03/20/24 Last Taken Unknown] Home Acetaminophen (Acetaminophen 325 Mg Tablet) 650 mg PO Q4H PRN PRN Reason: Mild Pain Alprazolam (Alprazolam 0.25 Mg Tablet) 0.25 mg PO TID PRN PRN Reason: Anxiety Apixaban (Apixaban 5 Mg Tab) 5 mg PO BID [facility] Last Admin: 03/20/24 20:59 Dose: 5 mg Brimonidine Tartrate (Brimonidine Tartrate 0.2% 5 Ml Btl) 1 drop EACHEYE BID [facility] Last Admin: 03/20/24 21:00 Dose: 1 drop Calcium/Vitamin D (Calcium Carbonate/Vitamin D3 500 Mg/5 Mcg(200iu) 1 Each Tablet) 1 each PO DAILY [facility] Clopidogrel Bisulfate (Clopidogrel Bisulfate 75 Mg Tablet) 75 mg PO DAILY [facility] Docusate Sodium (Docusate Sodium 100 Mg Capsule) 100 mg PO BID [facility] Last Admin: 03/20/24 20:58 Dose: 100 mg Dorzolamide/Timolol (Dorzolamide Hcl/Timolol Maleat Opth 10 Ml Sangeeta) 1 drop EACHEYE BID [facility] Last Admin: 03/20/24 21:00 Dose: 1 drop Ezetimibe (Ezetimibe 10 Mg Tablet) 10 mg PO BEDTIME [facility] Last Admin: 03/20/24 20:58 Dose: 10 mg Empagliflozin (Empagliflozin 10 Mg Tablet) 10 mg PO DAILY [facility] Gabapentin (Gabapentin 300 Mg Capsule) 300 mg PO BID [facility] Last Admin: 03/20/24 20:58 Dose: 300 mg Latanoprost (Latanoprost 2.5 Ml Opth Sangeeta) 1 drop EACHEYE BEDTIME [facility] Last Admin: 03/20/24 21:00 Dose: 1 drop Metoprolol Succinate (Metoprolol Succinate 25 Mg Tab.Er.24h) 12.5 mg PO BID [facility] Last Admin: 03/20/24 21:01 Dose: 12.5 mg Oxycodone/Acetaminophen (Oxycodone/Acetaminophen 10/325 Mg Tablet) 1 tab PO BID PRN PRN Reason: Pain Last Admin: 03/20/24 20:58 Dose: 1 tab Pantoprazole Sodium (Pantoprazole Sodium 40 Mg Tablet.Dr) 40 mg PO BID [facility] Last Admin: 03/20/24 20:59 Dose: 40 mg Polyethylene Glycol (Polyethylene Glycol 17 Gm Powd.Pack) 17 gm PO DAILY [facility] Ranolazine (Ranolazine 500 Mg Tab.Er.12h) 500 mg PO Q12H [facility] Last Admin: 03/20/24 17:51 Dose: 500 mg Rosuvastatin Calcium (Rosuvastatin Calcium 10 Mg Tablet) 40 mg PO DAILY [facility] Sodium Chloride (0.9% Sodium Chloride 10 Ml Disp.Syrin) 1 syr IVF PRN PRN PRN Reason: To flush IV Spironolactone (Spironolactone 25 Mg Tablet) 12.5 mg PO DAILY [facility] Sucralfate (Sucralfate 1 Gm Tablet) 1 gm PO TID [facility] Last Admin: 03/20/24 20:59 Dose: 1 gm Tamsulosin HCl (Tamsulosin Hcl 0.4 Mg Cap.Er.24h) 0.4 mg PO DAILY [facility] Timolol Maleate (Timolol Maleate 5 Ml Opth Sangeeta) 1 drop EACHEYE BID [facility] Last Admin: 03/20/24 21:49 Dose: Not Given Discontinued Medications Aspirin (Aspirin 81 Mg Tab.Chew) 324 mg PO ONCE STA Stop: 03/20/24 11:09 Last Admin: 03/20/24 11:23 Dose: 324 mg Iohexol (Iohexol 350 Mg/Ml 100ml) 100 ml IVP ONCE ONE Stop: 03/20/24 12:08 Last Admin: 03/20/24 12:35 Dose: 100 ml Metoprolol Succinate (Metoprolol Succinate 25 Mg Tab.Er.24h) 25 mg PO BID [facility] Pantoprazole Sodium (Pantoprazole Sodium 40 Mg Tablet.Dr) 40 mg PO BID [facility] Opioid Naive vs. Tolerant Does Patient Take Opioids?: Yes Is Patient Opioid Naive?: No What is Opioid Naive?: *Opioid Naive implies the patient is not already taking opioids or not chronically receiving opioids on a daily basis. *PRN dosing is not "usually" associated with tolerance. *Patients are at higher risk of over-sedation and aspiration. Is Patient Opioid Tolerant?: No What is Opioid Tolerant?: *Opioid Tolerance implies less than the expected response to an opioid. *Acquired tolerance is defined by the patient taking 60mg of oral morphine daily (or equianalgesic dose of another opioid) for 1 week or more. *Often associated with chronic pain. *May take more than usual dose to achieve desired pain control. Review of Systems Constitutional: Reports Weakness Head: Reports Normocephalic Eyes: Reports No symptoms Ears: Reports No symptoms Nose: Reports No symptoms Mouth: Reports No symptoms Throat: Reports No symptoms Cardiovascular: Denies Chest pain, Chest Pressure or Palpitations Respiratory: Denies Shortness of air Gastrointestinal: Reports No symptoms Genitourinary: Reports No Symptoms Musculoskeletal: Reports No symptoms Endocrine: Reports No symptoms Hematology: Reports No symptoms Immunology: Reports No symptoms Neurological: Reports Dizziness and Numbness (R side of head, bilateral arms and legs) Physical examination Most Recent Vital Signs: Most Recent Vital Signs Temperature 97.3 F L 03/20/24 10:17 Temperature Source Temporal Artery Scan 03/20/24 10:17 Pulse Rate 108 H 03/20/24 10:17 Respiratory Rate 20 03/20/24 10:17 Blood Pressure 133/96 H 03/20/24 10:17 O2 Sat by Pulse Oximetry 95 03/20/24 10:17 Height 6 ft 03/20/24 10:17 Weight 107.9 kg 03/20/24 10:17 Telemetry Heart Rate 51 L 12/20/23 11:12 Appearance: Positive No Apparent Distress and Alert and Oriented x3 Skin: Positive Baird, Warm and Good Turgor HEENT: Positive Normocephalic, Atraumatic and PERRLA Neck: Positive Supple, Non-Enlarged Thyroid and Midline Trachea; Negative Bruits or JVD Chest/Lungs: Positive Symmetrical With Equal Breath Sounds, Clear to Auscultation Bilaterally and Good Air Movement all 4 Lung Olmos; Negative Rales, Rhonci or Wheezes Heart: Positive Pulses Normal and Irregular Rhythm; Negative Tachycardia, No S3 Auscultated or No S4 Auscultated GI/: Positive Soft, Nontender, Bowel Sounds Normal, No Distention and No Organomegaly Musculoskeletal: Positive Normal Gait and Station Extremities: Positive Intact Peripheral Pulses, Stable Joints Without Laxity and Good ROM in All Joints; Negative Edema Neurological: Positive Sensation Intact, Motor intact, Reflexes Intact, Alert, Oriented and Muscle Strength 5/5 in Upper and Lower Extremities Bilaterally; Negative Focal Deficit Psychiatric: Positive Oriented x4, Appropriate Mood, Appropriate Affect, Intact Memory, Good Short-Term Recall, Good Long-Term Recall, Normal Judgement and Normal Insight Labs This Visit Labs This Visit: Labs This Visit 03/20/24 03/20/24 03/20/24 11:13 11:36 14:18 WBC 7.80 RBC 5.56 Hgb 15.6 Hct 49.6 MCV 89.2 MCH 28.1 MCHC 31.5 L RDW Coeff of Sergio 15.2 H Plt Count 155 Immature Gran % (Auto) 0.3 Neut % (Auto) 57.4 Lymph % (Auto) 32.9 Eaton % (Auto) 8.3 Eos % (Auto) 0.8 Baso % (Auto) 0.3 Neut # (Auto) 4.5 Lymph # (Auto) 2.6 Eaton # (Auto) 0.7 Eos # (Auto) 0.1 Baso # (Auto) 0.0 Immature Gran # (Auto) 0.0 PT 11.5 H INR 1.12 APTT 24.2 Sodium 140.3 Potassium 4.20 Chloride 108.8 H Carbon Dioxide 23.2 Anion Gap 12.50 BUN 17.6 Creatinine 0.97 Estimated GFR (MDRD) 75.00 BUN/Creatinine Ratio 18.14 Glucose 97.9 Calcium 10.02 Total Bilirubin 1.39 H AST 23.3 ALT 17.5 Alkaline Phosphatase 54.4 L Troponin I < 0.012 Total Protein 6.66 Albumin 4.08 Globulin 2.58 Albumin/Globulin Ratio 1.58 SARS CoV-2 RNA Rapid MITALI Negative Imaging Imaging: EXAM: CTA HEAD FINDINGS: There is atherosclerotic calcification of the cavernous and supraclinoid inte rnal carotid arteries. The anterior and middle cerebral arteries are normal in contour and caliber without large vessel occlusion. The vertebrobasilar system is patent. The superior cerebellar and posterior cerebral arteries are normal in contour and caliber. There is no intracranial aneurysm or arteriovenous malformation. IMPRESSION: No large vessel occlusion or high grade stenosis within the [place]. EXAMINATION: COMPUTED TOMOGRAPHY ANGIOGRAPHY (CTA) OF THE NECK WITH AND WITHOUT CONTRAST FINDINGS: NECK ANGIOGRAPHIC FINDINGS: Great Vessels: Normal configuration of the great vessels. Normal branching of aortic arch vessels. Mild atherosclerotic plaque of the aorta. Common Carotid Arteries: - Right: Normal course and caliber. No atherosclerotic plaque. - Left: Normal course and caliber. No atherosclerotic plaque. Internal Carotid Arteries: - Right: Normal course. Mild atherosclerotic plaque. 0% narrowing at the carotid bifurcation by NASCET criteria. - Left: Normal course. Mild atherosclerotic plaque. 0% narrowing at the carotid bifurcation by NASCET criteria. Vertebral Arteries: Co-dominant. - Right: Normal course and caliber. - Left: Normal course and caliber. SOFT TISSUE NECK: No lymphadenopathy. The muscles of the neck are normal. Fascial planes are preserved and the superficial and deep spaces of the neck are normal. The visualized airway is patent. Thyroid gland is normal. No fracture. Please see the concurrently dictated CT of the cervical spine for detailed evaluation. Limited examination of the superior thorax is normal. IMPRESSION: No internal carotid or vertebral artery stenosis. EXAMINATION: HEAD CT WITHOUT CONTRAST FINDINGS: Stable mild to moderate atrophy. No intracranial hemorrhage or significant extra-axial fluid collection. No region of abnormal low attenuation in the brain. Friedman white differentiation is preserved. No mass effect or midline shift. No hydrocephalus. Left cataract surgery, again noted. The visualized mastoid air cells and paranasal sinuses are clear. IMPRESSION: 1. No acute intracranial findings. 2. Stable mild to moderate atrophy. EXAM: CHEST ONE VIEW, FRONTAL VIEW ONLY. FINDINGS: Heart is enlarged. Atherosclerotic calcifications present but there is no vascular congestion. Linear opacities seen at the lung bases, stable from prior imaging. Lungs otherwise clear. No pleural effusion or pneumothorax identified. Left shoulder plasty hardware noted. Old T12 compression deformity noted. IMPRESSION: No acute process. EKG Interpretation EKG Interpretation: A fib, rate of 89 - no acute changes Review Statement Review Statement: I have independently reviewed and interpreted the labs/EKGs/imaging that were ordered by the ER provider. I have reviewed all outside records that are available currently in our EMR including imaging/notes/labs from previous visits. Plan Plan: 1. Stroke-like symptoms - CT head/CTA head and neck all negative, ASA given in ER, hold antihypertensives to allow permissive hypertension, checking lipid pa tiara, neurochecks Q4H, MRI in am 2. Dizziness - telemetry, orthostatics Q8H, MRI to r/o other etiology 3. A fib - chronic, not in RVR, continue home medications 4. CHFpEF - last echo 10/2022 EF 57%, does not appear in exacerbation, continue home medications 5. CAD - follows with Dr. Vazquez at [facility], next follow-up in 2 months, likely needs earlier appointment upon discharge, continue anticoagulation DVT Prophylaxis: Eliquis & Plavix Time Spent: Greater than 80 minutes spent with patient, 50% of the time spent with this patient was devoted to counseling and coordination of care. [facility]in minutes spent discussing advance care planning. Disposition: Admit to: Med/Surg Observation Full Code Discussed Plan of Care with Dr. Rochelle Jarquin. Medications Medication Orders: Medications Ordered Category Date Time Status 0.9 % Sodium Chloride [Saline Flush] Meds 03/20/24 10:25 Active 1 syr IVF PRN PRN Acetaminophen [Tylenol] Meds 03/20/24 14:41 Active 650 mg PO Q4H PRN
[2024-03-20 15:21] LABS: TROPONIN I < 0.012 ng/ml (0.0000-0.120)
[2024-03-20 15:28] LABS: BILIRUBIN,URINE Negative (NEGATIVE); CLARITY,URINE Clear (CLEAR); COLOR,URINE Yellow (YELLOW); GLUCOSE, URINE (UA) 2+ (NEGATIVE); KETONES,URINE Negative (NEGATIVE); LEUKOCYTE ESTERASE ,URINE Negative (NEGATIVE); NITRITE,URINE Negative (NEGATIVE); PROTEIN,URINE Negative (NEGATIVE); URINE, BLOOD Negative (NEGATIVE); UROBILINOGEN,URINE 0.2 (0.2)
[2024-03-20 16:00] VITALS: BMI 31.4
[2024-03-20] MEDS ORDERED: XANAX PO PRN (16:49)
[2024-03-20] MEDS: RANEXA PO SCH (17:51)
[2024-03-20] MEDS: PERCOCET 10-325 PO PRN (20:58)
[2024-03-20] MEDS: COLACE PO SCH (20:58)
[2024-03-20] MEDS: NEURONTIN PO SCH (20:58)
[2024-03-20] MEDS: ZETIA PO SCH (20:58)
[2024-03-20] MEDS: CARAFATE PO SCH (20:59)
[2024-03-20] MEDS: ELIQUIS PO SCH (20:59)
[2024-03-20] MEDS: PROTONIX PO SCH (20:59)
[2024-03-20] MEDS ORDERED: TOPROL XL PO SCH (21:00)
[2024-03-20] MEDS: COSOPT EACHEYE SCH (21:00)
[2024-03-20] MEDS: XALATAN EACHEYE SCH (21:00)
[2024-03-20] MEDS: BRIMONIDINE TARTRATE 0.2% OPTH SOL EACHEYE SCH (21:00)
[2024-03-20] MEDS ORDERED: PROTONIX PO SCH (21:00)
[2024-03-20] MEDS: TOPROL XL PO SCH (21:01)
[2024-03-20] MEDS: TIMOPTIC 0.5% OPTH EACHEYE SCH (21:49)
[2024-03-21 05:22] LABS: BASOPHILS % (AUTO) 0.5 % (0.0-3.0); EOSINOPHILS # (AUTO) 0.1 K/ul (0.0-0.7); EOSINOPHILS % (AUTO) 1.7 % (0.0-7.0); HEMATOCRIT 45.6 % (42.0-52.0); HEMOGLOBIN 14.2 g/dl (14.0-18.0); IMMATURE GRANULOCYTE % (AUTO) 0.3 % (0.0-5.0); LYMPHOCYTES % (AUTO) 45.3 (10.0-50.0); MEAN CORPUSCULAR HEMOGLOBIN 27.8 pg (27.0-31.0); MEAN CORPUSCULAR HGB CONC 31.1 (31.8-35.4); MEAN CORPUSCULAR VOLUME 89.2 fl (80.0-94.0); MONOCYTES # (AUTO) 0.6 K/uL (0.4-2.0); MONOCYTES % (AUTO) 9.6 (0-10); NEUTROPHILS # (AUTO) 2.8 K/ul (2.0-6.9); NEUTROPHILS % (AUTO) 42.6 % (42.2-75.2); PLATELET COUNT 131 10^3/uL (140-440); RDW COEFFICIENT OF VARIATION 15.1 % (11.6-14.8); RED BLOOD COUNT 5.11 10^6/ul (4.70-6.10); WHITE BLOOD COUNT 6.54 K/ul (4.2-10.2)
[2024-03-21 05:38] LABS: ALANINE AMINOTRANSFERASE 15.8 U/L (0-50); ALBUMIN 3.67 g/dL (3.5-5.0); ALKALINE PHOSPHATASE 52.8 U/L (56-119); BILIRUBIN,TOTAL 1.28 mg/dL (0.2-1.3); BLOOD UREA NITROGEN 17.7 mg/dL (9-20); CALCIUM 9.55 mg/dL (8.4-10.2); CARBON DIOXIDE 23.6 mmol/L (22-30.0); CHLORIDE 107.2 mmol/L (98-107); CREATININE 0.99 mg/dL (0.60-1.10); GLUCOSE 85.8 mg/dL (74-106); POTASSIUM 3.96 mmol/L (3.5-5.1); SODIUM 136.2 mmol/L (134.5-145); TOTAL PROTEIN 6.17 g/dL (6.3-8.2)
[2024-03-21 05:44] VITALS: TEMP 97.6
[2024-03-21] MEDS: MIRALAX PO SCH (08:48)
[2024-03-21] MEDS: CRESTOR PO SCH (08:51)
[2024-03-21] MEDS: JARDIANCE PO SCH (08:52)
[2024-03-21] MEDS: FLOMAX PO SCH (08:52)
[2024-03-21] MEDS: CALCIUM 500 + VIT D 5 MCG (200 IU) TABLET PO SCH (08:53)
[2024-03-21] MEDS: ALDACTONE PO SCH (08:53)
[2024-03-21] MEDS: PLAVIX PO SCH (08:53)
[2024-03-21] MEDS: BRIMONIDINE TARTRATE 0.2% OPTH SOL EACHEYE SCH (08:59)
[2024-03-21] MEDS: COSOPT EACHEYE SCH (08:59)
[2024-03-21 10:28] VITALS: BP 133/75; PULSE 85; RESP 17
[2024-03-21] MEDS: [UNRECOGNIZED DRUG - OTHER] IVP ONE (12:42)
--- NOTE | 2024-03-21 13:13 | MRI ---
EXAMINATION: MAGNETIC RESONANCE IMAGING (MRI) OF THE BRAIN WITH AND WITHOUT CONTRAST HISTORY: Numbness. TECHNIQUE: Multiplanar multi-weighted MRI of the brain and brainstem was performed with and without i ntravenous contrast using the general brain protocol. Contrast: 20 mL Clariscan COMPARISON: CTA head 03/20/2024 FINDINGS: Parenchyma: No acute infarct. No acute hemorrhage. No enhancing intracranial lesion. No mass effec t or midline shift. Craniocervical junction is normal. Moderate generalized cortical volume loss. Ventricles/Extra-axial Spaces: Ventricles are normal in size and morphology for age. Normal basal ci sterns. Sella/Skull Base: Pituitary and sella are normal. Paranasal Sinuses/Mastoids: Paranasal sinuses are clear. Mastoid air cells are clear. Orbits: Left artificial lens replacement. Vasculature: Normal flow voids in the carotid arteries and basilar artery. Calvarium/Scalp: Normal marrow. No soft tissue swelling. Limited Cervical Spine: No significant abnormality. IMPRESSION: No acute intracranial abnormality. Moderate generalized cortical volume loss.
--- NOTE | 2024-03-21 13:53 | DCSUM ---
Admission Date Admission Date: 03/20/24 Discharge Date Discharge Date: 03/21/24 Admission Diagnosis Admission Diagnosis: 1. Stroke-like Symptoms 2. Dizziness Discharge Diagnosis Discharge Diagnosis: 1. Stroke-like symptoms - Work-up negative for acute stroke 2. Dizziness - Orthostatics normal, MRI negative, echo completed with EF 52%, symptoms improved with decrease of metoprolol to 12.5 mg bid 3. A fib - chronic, stable 4. CHFpEF - Chronic, stable 5. CAD - stable, fu with Dr. Sigala in June Hospital Provider Hospital Provider[facility] Phys[facility] Primary Care Physician: RICHARD JARQUIN MD Summary of History and Physical Summary of History and Physical: .79 yo male with pmh of CAD with stents, HTN, Afib, CRISELDA, CHFpEF, GERD, and chronic facial deformity since presented to the ER with complaints of generalized weakness, dizziness, and numbness and tingling to the arms, legs, and R side of head. States that this has been intermittent over the last several weeks. Recently had decrease in his metoprolol due to his provider believing this might be the contributing factor to the dizziness. Has not had MRI or further work-up for dizziness. Has no focal deficits. ER work-up negative for acute findings. States that this last episode occurred when he was getting off the treadmill in cardiac rehab today. States that the dizziness episodes occur with exertion and the weakness occurs after periods of activity. Denies any chest pain, palpitations, vision changes, shortness of breath. Has checked his heart rate at home and the highest it has been is around 108. He most recently had stents placed in November [address] [place] [address] Sigala. Reports he was told he has other blockages that were at 30% but in small vessels that they were unable to stent. Reports dizziness and numbness is much better at this time but "just wants to get to the bottom of this". Admitted to med/surg observation. Hospital Course Subjective: During stay, patient was evaluated for acute stroke. CT head, CTA head and neck, MRI brain w/wo contrast were all negative for acute findings. Troponins negative. Numbness/tingling has improved but mildly present. Patient has now reported previous fall from years ago that resulted in shoulder injury and reports likely neck injury but has not had issues prior to this. Sent Rx for medrol dose pack to treat possible inflammation. Orthostatic vital signs monitored during stay and were negative. Did have some lower BPs initially in 90s/60s range. Lowered metoprolol dosage to 12.5 mg bid. HR has tolerated well and BP is within normal range. Echo completed today and showed LVH (not new from previous), EF 52%. No other episodes of dizziness during stay. Reports feeling better and would like to go home at this time. 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 Sigala 03/08/24 and is following up the beginning of June 2024. No further changes to home medications. Encouraged to avoid excess strenuous activity and to drink plenty of fluids. Follow-up with Dr. Jarquin next week. Appearance: Pleasant, No Apparent Distress and Alert HEENT: MMM, Supple and No JVD CVS: No Murmur and No Rubs Abdomen: Soft, Non-Tender and No Distention Respiratory: No Dyspnea Extremities: No Edema Vital Signs: Most Recent Vital Signs Temperature 97.6 F 03/21/24 05:43 Temperature Source Temporal Artery Scan 03/21/24 05:43 Temperature Source Temporal Artery Scan 03/20/24 10:17 Pulse Rate 85 03/21/24 10:00 Respiratory Rate 17 03/21/24 10:00 Blood Pressure 133/75 03/21/24 10:00 Blood Pressure Mean 94 03/21/24 10:00 Blood Pressure Left Arm 111/74 03/20/24 15:22 Blood Pressure Location Left Arm 03/21/24 10:00 Blood Pressure Position Sitting 03/21/24 10:00 O2 Sat by Pulse Oximetry 95 03/21/24 10:00 Oxygen Delivery Method Room Air 03/21/24 12:56 Height 6 ft 03/20/24 15:22 Weight 105.1 kg 03/20/24 15:22 Telemetry Type Remote Telemetry 03/21/24 07:00 Telemetry Monitoring Continues 03/21/24 07:00 Irregular Telemetry Rate (Approximate) 60-70 BPM 03/21/24 01:00 Telemetry Heart Rate 67 03/21/24 07:00 Telemetry SPO2 100 03/21/24 07:00 EKG QRS Interval 0.08 03/21/24 07:00 Telemetry Strip Reading Afib 12/17/24 07:00 Imaging: EXAM: CTA HEAD FINDINGS: There is atherosclerotic calcification of the cavernous and supraclinoid internal carotid arteries. The anterior and middle cerebral arteries are normal in contour and caliber without large vessel occlusion. The vertebrobasilar system is patent. The superior cerebellar and posterior cerebral arteries are normal in contour and caliber. There is no intracranial aneurysm or arteriovenous malformation. IMPRESSION: No large vessel occlusion or high grade stenosis within the [place] of [place]. EXAMINATION: COMPUTED TOMOGRAPHY ANGIOGRAPHY (CTA) OF THE NECK WITH AND WITHOUT CONTRAST FINDINGS: NECK ANGIOGRAPHIC FINDINGS: Great Vessels: Normal configuration of the great vessels. Normal branching of aortic arch vessels. Mild atherosclerotic plaque of the aorta. Common Carotid Arteries: - Right: Normal course and caliber. No atherosclerotic plaque. - Left: Normal course and caliber. No atherosclerotic plaque. Internal Carotid Arteries: - Right: Normal course. Mild atherosclerotic plaque. 0% narrowing at the carotid bifurcation by NASCET criteria. - Left: Normal course. Mild atherosclerotic plaque. 0% narrowing at the carotid bifurcation by NASCET criteria. Vertebral Arteries: Co-dominant. - Right: Normal course and caliber. - Left: Normal course and caliber. SOFT TISSUE NECK: No lymphadenopathy. The muscles of the neck are normal. Fascial planes are preserved and the superficial and deep spaces of the neck are normal. The visualized airway is patent. Thyroid gland is normal. No fracture. Please see the concurrently dictated CT of the cervical spine for detailed evaluation. Limited examination of the superior thorax is normal. IMPRESSION: No internal carotid or vertebral artery stenosis. EXAMINATION: HEAD CT WITHOUT CONTRAST FINDINGS: Stable mild to moderate atrophy. No intracranial hemorrhage or significant extra-axial fluid collection. No region of abnormal low attenuation in the brain. Friedman white differentiation is preserved. No mass effect or midline shift. No hydrocephalus. Left cataract surgery, again noted. The visualized mastoid air cells and paranasal sinuses are clear. IMPRESSION: 1. No acute intracranial findings. 2. Stable mild to moderate atrophy. EXAM: CHEST ONE VIEW, FRONTAL VIEW ONLY. FINDINGS: Heart is enlarged. Atherosclerotic calcifications present but there is no vascular congestion. Linear opacities seen at the lung bases, stable from prior imaging. Lungs otherwise clear. No pleural effusion or pneumothorax identified. Left shoulder plasty hardware noted. Old T12 compression deformity noted. IMPRESSION: No acute process. EXAMINATION: MAGNETIC RESONANCE IMAGING (MRI) OF THE BRAIN WITH AND WITHOUT CONTRAST FINDINGS: Parenchyma: No acute infarct. No acute hemorrhage. No enhancing intracranial lesion. No mass effect or midline shift. Craniocervical junction is normal. Moderate generalized cortical volume loss. Ventricles/Extra-axial Spaces: Ventricles are normal in size and morphology for age. Normal basal cisterns. Sella/Skull Base: Pituitary and sella are normal. Paranasal Sinuses/Mastoids: Paranasal sinuses are clear. Mastoid air cells are clear. Orbits: Left artificial lens replacement. Vasculature: Normal flow voids in the carotid arteries and basilar artery. Calvarium/Scalp: Normal marrow. No soft tissue swelling. Limited Cervical Spine: No significant abnormality. IMPRESSION: No acute intracranial abnormality. Moderate generalized cortical volume loss. Lab Results Last 24 Hours: 03/21/24 03/20/24 03/20/24 05:16 15:15 14:52 WBC 6.54 RBC 5.11 Hgb 14.2 Hct 45.6 MCV 89.2 MCH 27.8 MCHC 31.1 L RDW Coeff of Sergio 15.1 H Plt Count 131 L Immature Gran % (Auto) 0.3 Neut % (Auto) 42.6 Lymph % (Auto) 45.3 [place] % (Auto) 9.6 Eos % (Auto) 1.7 Baso % (Auto) 0.5 Neut # (Auto) 2.8 Lymph # (Auto) 3.0 [place] # (Auto) 0.6 Eos # (Auto) 0.1 Baso # (Auto) 0.0 Immature Gran # (Auto) 0.0 Sodium 136.2 Potassium 3.96 Chloride 107.2 H Carbon Dioxide 23.6 Anion Gap 9.36 BUN 17.7 Creatinine 0.99 Estimated GFR (MDRD) 73.00 BUN/Creatinine Ratio 17.87 Glucose 85.8 Calcium 9.55 Total Bilirubin 1.28 AST 28.0 ALT 15.8 Alkaline Phosphatase 52.8 L Troponin I < 0.012 Total Protein 6.17 L Albumin 3.67 Globulin 2.50 Albumin/Globulin Ratio 1.46 Triglycerides 128.5 Cholesterol 135.0 LDL Cholesterol, Calc 56 VLDL Cholesterol 26 HDL Cholesterol 53.0 Cholesterol/HDL Ratio 2.5 L Urine Color Yellow Urine Clarity Clear Urine pH 7.0 Ur Specific [place] 1.015 Urine Protein Negative Urine Glucose (UA) 2+ H Urine Ketones Negative Urine Blood Negative Urine Nitrite Negative Urine Bilirubin Negative Urine Urobilinogen 0.2 Ur Leukocyte Esterase Negative SARS CoV-2 RNA Rapid MITALI 03/20/24 14:18 WBC RBC Hgb Hct MCV MCH MCHC RDW Coeff of Sergio Plt Count Immature Gran % (Auto) Neut % (Auto) Lymph % (Auto) [place] % (Auto) Eos % (Auto) Baso % (Auto) Neut # (Auto) Lymph # (Auto) [place] # (Auto) Eos # (Auto) Baso # (Auto) Immature Gran # (Auto) Sodium Potassium Chloride Carbon Dioxide Anion Gap BUN Creatinine Estimated GFR (MDRD) BUN/Creatinine Ratio Glucose Calcium Total Bilirubin AST ALT Alkaline Phosphatase Troponin I Total Protein Albumin Globulin Albumin/Globulin Ratio Triglycerides Cholesterol LDL Cholesterol, Calc VLDL Cholesterol HDL Cholesterol Cholesterol/HDL Ratio Urine Color Urine Clarity Urine pH Ur Specific [place] Urine Protein Urine Glucose (UA) Urine Ketones Urine Blood Urine Nitrite Urine Bilirubin Urine Urobilinogen Ur Leukocyte Esterase SARS CoV-2 RNA Rapid MITALI Negative Discharge Instructions Discharge Planning: Discharge Planning > 40 minutes If patient is discharged with left ventricular systolic dysfunction: no Discharged with a beta curt? [] If no, why not? [] Discharged with an kinsey/arb? [] If no, why not? [] Diagnosis: Dizziness Diet: Cardiac, be sure to drink at least 2L of water daily Activity: as tolerated Follow-up with PCP and Cardiology Medications: [facility] drugs #1 Discharge Medications: Medications at Discharge (Home Meds & RX) multivitamin 1 cap PO DAILY 06/21/13 calcium 600 mg (as carbonate)-vitamin D3 10 mcg (400 unit) tablet 1 ea PO DAILY 05/08/16 latanoprost 0.005 % eye drops 1 drp .ROUTE BEDTIME 05/08/16 timolol maleate 0.5 % eye drops 1 drp BOTHEYES BID 02/23/17 tamsulosin 0.4 mg capsule (Flomax) 0.4 mg PO QDAY #30 caps 06/25/22 gabapentin 300 mg capsule 300 mg PO BID 07/07/22 empagliflozin 10 mg tablet (Jardiance) 10 mg PO QDAY 12/23/22 oxycodone-acetaminophen 10 mg-325 mg tablet 1 tab PO BID PRN pain 12/23/22 dorzolamide 22.3 mg-timolol 6.8 mg/mL eye drops 1 drp ophthalmic (eye) BID 11/09/23 glucosamine-chondroitin 1,500 mg -1,200 mg/30 mL oral liquid 30 ml PO DAILY 11/09/23 clopidogrel 75 mg tablet (Plavix) 75 mg PO QDAY 11/23/23 docusate sodium 100 mg capsule 100 mg PO BID 11/23/23 nitroglycerin 0.4 mg sublingual tablet 0.4 mg sublingual Q5M PRN chest pain 11/23/23 polyethylene glycol 3350 17 gram/dose oral powder (Miralax) 17 g PO QDAY 11/23/23 Maalox/Benadryl/Viscous Lidocaine EQ 10 ml PO TID 12/21/23 furosemide 40 mg tablet (Lasix) 40 mg PO QDAY PRN edema 12/21/23 pantoprazole 20 mg tablet,delayed release 40 mg PO BID 12/21/23 potassium chloride 20 mEq tablet,extended release 20 meq PO ONCE PRN while taking Lasix 12/21/23 ranolazine 500 mg tablet,extended release,12 hr 500 mg PO Q12H 12/21/23 rosuvastatin 40 mg tablet 40 mg PO QDAY 12/21/23 spironolactone 25 mg tablet 12.5 mg PO QDAY 12/21/23 alprazolam 0.25 mg tablet 0.25 mg PO TID PRN Anxiety #90 tabs 01/20/24 apixaban 5 mg tablet (Eliquis) 5 mg PO BID #60 tabs 02/01/24 silver sulfadiazine 1 % topical cream 1 applic topical QDAY #20 grams 02/01/24 ezetimibe 10 mg tablet (Zetia) 10 mg PO QDAY #90 tabs 02/09/24 sucralfate 1 gram tablet (Carafate) 1 g PO TID #90 tabs 02/17/24 brimonidine 0.2 % eye drops 1 drp BOTHEYES BID 03/20/24 metoprolol succinate 25 mg tablet,extended release 24 hr 25 mg PO BID 03/20/24 Discharge Plan Discharge Discharge Orders: Discharge Patient (ONCE); Ordered 03/21/24 Ordered By: HARJINDER ODONNELL Activity Restrictions/Additional Instructions: Diagnosis: Dizziness Diet: Cardiac, be sure to drink at least 2L of water daily Activity: as tolerated Follow-up with PCP and Cardiology Medications: [facility] drugs #1 Instructions: Dizziness (GEN) Patient Disposition: HOME SELF-CARE Prescriptions: New metoprolol succinate [Toprol XL] 25 mg Tablet Extended Release 24 Hr 12.5 mg PO BID Qty: 60 0RF methylprednisolone [Medrol (Raudel)] 4 mg tablets,dose pack See Rx Instructions .ROUTE .COMPLEX Qty: 21 0RF Rx Instructions: orally per package directions Continued alprazolam 0.25 mg tablet 0.25 mg PO TID PRN (Reason: Anxiety) Qty: 90 2RF ezetimibe [Zetia] 10 mg tablet 10 mg PO QDAY Qty: 90 1RF Rx Instructions: Take 1 tablet by mouth every night sucralfate [Carafate] 1 gram tablet 1 g PO TID Qty: 90 3RF multivitamin 1 CAP capsule 1 cap PO DAILY calcium carbonate-vitamin D3 1 EACH tablet 1 ea PO DAILY latanoprost 1 DROP drops 1 drp .ROUTE BEDTIME Patient Comments: 1 DROP EACH EYE AT BEDTIME dorzolamide-timolol 22.3-6.8 mg/mL drops 1 drp ophthalmic (eye) BID glucosamine-chondroitin 1,500-1,200 mg/30 mL liquid 30 ml PO DAILY timolol maleate 1 DROP drops 1 drp BOTHEYES BID docusate sodium 100 mg capsule 100 mg PO BID brimonidine 0.2 % drops 1 drp BOTHEYES BID tamsulosin [Flomax] 0.4 mg capsule 0.4 mg PO QDAY Qty: 30 3RF Jardiance 10 mg tablet 10 mg PO QDAY oxycodone-acetaminophen 10-325 mg tablet 1 tab PO BID PRN (Reason: pain) potassium chloride 20 mEq tablet extended release 20 meq PO ONCE PRN (Reason: while taking Lasix) Rx Instructions: Take 1 tablet (20 mEq) by mouth once a day as needed (Take if you take your Lasix, DO NOT take Daily) clopidogrel [Plavix] 75 mg tablet 75 mg PO QDAY polyethylene glycol 3350 [Miralax] 17 gram/dose powder 17 g PO QDAY nitroglycerin 0.4 mg tablet, sublingual 0.4 mg sublingual Q5M PRN (Reason: chest pain) Rx Instructions: do not exceed 3 doses per episode pantoprazole 20 mg tablet,delayed release (DR/EC) 40 mg PO BID Patient Comments: takes 2 in am and 1 pm Rx Instructions: Take 1 tablet (20 mg total) by mouth every night and 2 tablets (40 mg total) Daily spironolactone 25 mg tablet 12.5 mg PO QDAY Rx Instructions: Take 0.5 tablets (12.5 mg total) by mouth daily) furosemide [Lasix] 40 mg tablet 40 mg PO QDAY PRN (Reason: edema) Rx Instructions: Take 1 tablet (40 mg total) by mouth once a day as needed (Take 40 mg oral if weight increased 3 lbs in 1 day or 5 lbs in 3 days) Maalox/Benadryl/Viscous Lidocaine EQ 10 mL liquid 10 ml PO TID Rx Instructions: Swish and Spit 10 mL 3 times a day before meals ranolazine 500 mg tablet extended release 12 hr 500 mg PO Q12H Rx Instructions: Take 1 Tablet by mouth every 12 hours rosuvastatin 40 mg tablet 40 mg PO QDAY silver sulfadiazine 1 % cream 1 applic topical QDAY Qty: 20 0RF Rx Instructions: Apply small amount to left knee topically after showering Eliquis 5 mg tablet 5 mg PO BID Qty: 60 4RF Rx Instructions: Take 1 tablet by mouth every 12 hours gabapentin 300 mg capsule 300 mg PO BID Patient Comments: Pain Management Discontinued metoprolol succinate 25 mg tablet extended release 24 hr 25 mg PO BID Did you review [place] [employer] for ALL controlled substances?: No Discussed opioids are addictive and Narcan is available by prescription or from pharmacy.: No Condition: Stable Referrals: RICHARD JARQUIN MD [Primary Care Provider] - 03/27/24 2:45 pm
[2024-03-21] MEDS ORDERED: XALATAN EACHEYE SCH (21:00)
--- NOTE | 2024-03-22 13:44 | ECHO2D ---
Date of Exam: 03/21/2024 Ordering Physician: HOSPITALIST--HARJINDERW/ PCP DR. Cary MENDOZA Room #: SCU2 Reason for Echo: DIZZINESS, CAD WITH STENTS, HTN, A-FIB, HX PE M-Mode Normal Adult Results LV Dimensions Normal Adult Results AoV Opening excursions >1.6 >1.6 LVEDD-base- 3.5-5.8 4.9 Ao root dimensions 2.0-3.7 3.9 LVESD-base- 3.1-4.6 L. Atrium dimensions 1.9-3.8 4.5 Post. Wall thickness 0.8-1.1 1.2 IV septum (thickness) 0.7-1.2 1.3 Post. Wall excursion 0.72-1.3 NORMAL Septal motion NORMAL Systolic motion R. Ventricular cavity 1.5-2.0 NORMAL LVEF 60% 52% Paradoxical septal wall motion NORMAL 2-D : MILDLY DILATED AORTIC ROOT--ENLARGED LEFT ATRIAL CAVITY--LEFT VENTRICLE CONTRACTILITY -NORMAL, LEFT VENTRICLE SIZE--NORMAL, NO EFFUSION, NO THROMBUS M-MODE: MV: NORMAL AV: NORMAL TV: NORMAL PV: CHAMBER SIZE: ENLARGED LEFT ATRIAL CAVITY WALL MOTION: NORMAL PERICARDIUM: NORMAL INTERPRETATION: 1. LEFT VENTRICLE HYPERTROPHY WITH ENLARGED LEFT ATRIAL CAVITY 2. MILDLY DILATED AORTIC ROOT 3. LEFT VENTRICLE SIZE AND LEFT VENTRICLE CONTRACTILITY--NORMAL, EJECTION FRACTION 52% 4. VALVES--NORMAL MTDD
== END 2024-03-21 14:40 | disposition home or self-care (01) ==
LOC: SCU 10:13 → ED 10:13 → SCU 15:25
PROVIDERS: ADMIT Hospitalist; ATTEND Nurse Practitioner Family
DX: I25.10 Atherosclerotic heart disease of native coronary artery without angina pectoris; Z79.02 Long term (current) use of antithrombotics/antiplatelets; I10 Essential (primary) hypertension; I25.2 Old myocardial infarction; K21.9 Gastro-esophageal reflux disease without esophagitis; Z95.5 Presence of coronary angioplasty implant and graft; M47.22 Other spondylosis with radiculopathy, cervical region; Z79.01 Long term (current) use of anticoagulants; Z20.822 Contact with and (suspected) exposure to COVID-19; I48.20 Chronic atrial fibrillation, unspecified; Z86.718 Personal history of other venous thrombosis and embolism; M62.81 Muscle weakness (generalized); E78.5 Hyperlipidemia, unspecified; Z51.81 Encounter for therapeutic drug level monitoring; I50.30 Unspecified diastolic (congestive) heart failure; G47.33 Obstructive sleep apnea (adult) (pediatric); Z79.899 Other long term (current) drug therapy; G45.9 Transient cerebral ischemic attack, unspecified; R42 Dizziness and giddiness